=== PATIENT | female | born 1960 | race Caucasian/White ===

== ENCOUNTER 2016-08-09 18:40 | Observation (INO) | payer MEDICAID ==
[2016-08-09 19:14] LABS: BASOPHIL % 0.8 % (0.0-0.4); Eosinophil % 1.9 % (0.00-5.0); Granulocytes % 61.6 % (36.0-66.0); Lymphocytes % 28.1 % (24.0-44.0); Mean Cell Volume 80.7 fl (78-100); Mean Corpuscular Hemoglobin 27.4 pg (26-32); Mean Platelet Volume 10.6 fl (6-9.5); Monocytes % 7.6 % (0.0-12.0); Platelet Count 321 K/mm3 (150-450); Red Blood Count 5.19 M/mm3 (4.1-5.4); Red Cell Distribution Width 14.1 % (11.5-14.0); White Blood Count 10.2 K/mm3 (4.0-10.5)
--- NOTE | 2016-08-09 19:16 | ERPHSYRPT ---
- History of Present Illness Time Seen by Provider: 08/09/16 19:06 Source: patient, EMS Exam Limitations: no limitations Patient Subjective Stated Complaint: pt brought to ed per ems from home-reports pt has been vomiting x 2 days reports pt to be confused Triage Nursing Assessment: pt pale warm et dry-alert to person-able to follow simple commands- Physician History: The patient is a 56-year-old morbidly obese female brought in by ambulance from home. The family does not arrive with her. History is inadequate. EMS states she vomited occasionally for the past 2 days. She's also been confused. The patient states she has epigastric pain intermittently but right now has no pain. She is confused. She doesn't know where she is. She thinks she is at home. She does not know the year the month or the day. She thinks it's winter when it is the month of August. He she wonders where her dog is. She states that she has smoked marijuana today she does every day. Her past medical history is significant for congestive heart failure, diabetes, high cholesterol, hypertension, stroke, depression, and GERD. Timing/Duration: day(s) (2) Severity: moderate Modifying Factors: Improves With: nothing Associated Symptoms: nausea, vomiting, abdominal pain Allergies/Adverse Reactions: ketorolac tromethamine [From Toradol] Allergy (Mild, Verified 08/09/16 18:51) Rash Penicillins Allergy (Mild, Verified 08/09/16 18:51) Rash tramadol Allergy (Mild, Verified 08/09/16 18:51) Rash trazodone Allergy (Mild, Verified 08/09/16 18:51) Rash Home Medications: Escitalopram Oxalate 10 mg [Lexapro 10 MG] 10 mg PO TID 07/14/13 [History] Cyclobenzaprine HCl 10 mg [Cyclobenzaprine 10 MG] 1 tab PO BID 10/18/14 [ History] Insulin Lispro [Humalog] 18 units SQ TIDWMEALS 10/31/14 [History] Insulin Glargine,Hum.rec.anlog [Lantus Solostar] 18 unit SQ HS 04/23/15 [History ] Buspirone HCl 5 mg [Buspar 5 mg] 5 mg PO TID 05/22/15 [History] Carvedilol 3.125 mg [Coreg 3.125 MG] 3.125 mg PO BID 05/22/15 [History] Meclizine HCl 25 mg [Antivert 25 mg] 25 mg PO TID 05/22/15 [History] Naproxen Sodium [Naproxen Sodium ER] 500 mg PO TID 05/22/15 [History] Zolpidem Tartrate [Ambien] 12.5 mg PO TID 05/22/15 [History] Clonazepam 0.5 mg [Klonopin 0.5 MG] 0.5 mg PO UD 08/09/16 [History] Pregabalin [Lyrica 150Mg] 150 mg PO DAILY 08/09/16 [History] Ranitidine HCl [Zantac] 150 mg PO BID 08/09/16 [History] Hx Tetanus, Diphtheria Vaccination/Date Given: No Hx Influenza Vaccination/Date Given: No Hx Pneumococcal Vaccination/Date Given: No Immunizations Up to Date: Yes - Review of Systems Constitutional: No Fever, No Chills Eyes: No Symptoms Ears, Nose, & Throat: No Symptoms Respiratory: No Cough, No Dyspnea Cardiac: No Chest Pain, No Edema, No Syncope Abdominal/Gastrointestinal: Abdominal Pain, Nausea, Vomiting Genitourinary Symptoms: No Dysuria Musculoskeletal: No Back Pain, No Neck Pain Skin: No Rash Neurological: Other (confusion) Psychological: No Symptoms Endocrine: No Symptoms Hematologic/Lymphatic: No Symptoms Immunological/Allergic: No Symptoms All Other Systems: Reviewed and Negative - Past Medical History Pertinent Past Medical History: Yes Neurological History: Migraines, Other ENT History: No Pertinent History Cardiac History: No Pertinent History Respiratory History: No Pertinent History Endocrine Medical History: Diabetes Type II, Other Musculoskeletal History: Degenerative Disk Disease GI Medical History: No Pertinent History History: Other Psycho-Social History: Anxiety, Depression Female Reproductive Disorders: Abnormal Uterine Bleeding, Fibroids Other Medical History: "BACK PROBLEMS" - Past Surgical History Past Surgical History: Yes Neuro Surgical History: No Pertinent History Cardiac: No Pertinent History Respiratory: No Pertinent History Gastrointestinal: Cholecystectomy Genitourinary: No Pertinent History Musculoskeletal: No Pertinent History Female Surgical History: Section, Tubal Ligation - Social History Smoking Status: Never smoker Exposure to second hand smoke: No Drug Use: marijuana Patient Lives Alone: No - Female History Hx Now: No - Nursing Vital Signs Nursing Vital Signs: Initial Vital Signs Temperature 99.2 F Temperature Source Rectal Pulse Rate 100 Respiratory Rate 22 Blood Pressure [] 93/53 Pain Intensity 0 - Physical Exam General Appearance: mild distress Eye Exam: PERRL/EOMI, eyes nml inspection Ears, Nose, Throat Exam: normal ENT inspection, TMs normal, pharynx normal, moist mucous membranes Neck Exam: normal inspection, non-tender, supple, full range of motion Respiratory Exam: normal breath sounds, lungs clear, No respiratory distress Cardiovascular Exam: regular rate/rhythm, normal heart sounds, normal peripheral pulses Gastrointestinal/Abdomen Exam: tenderness Pelvic Exam: not done Rectal Exam: not done Back Exam: normal inspection, normal range of motion, No CVA tenderness, No vertebral tenderness Extremity Exam: normal inspection, normal range of motion, pelvis stable SpO2 Interpretation: normal SpO2: 98 Oxygen Delivery: Room Air - Course EKG Interpreted by Me: RATE, Sinus Rhythm, NORMAL AXIS, NORMAL INTERVALS, NORMAL QRS, Other (inverted T waves in V2, V3, V4, change in EKG compared to EKG 04/23/15.) - CT Exams Abdomen/Pelvis CT Interpretation: Tele-radiologist Report, Other (No new acute findings. Splenomegaly compared to 07/23/[address] Brooks.) Ordered Tests: Active Orders 24 hr Category Date Time Status Rubber Trimmer STAT Care 08/09/16 18:50 Active Cath for Specimen-Straight STAT Care 08/09/16 18:50 Active EKG-ER Only STAT Care 08/09/16 18:50 Active IV Insertion STAT Care 08/09/16 18:52 Active ABDOMEN AND PELVIS W/0 CONTRAS [CT] Stat Exams 08/09/16 19:23 Taken BNP [NT PRO BNP] Stat Lab 08/09/16 19:20 Completed CBC W DIFF Stat Lab 08/09/16 19:10 Completed CMP Stat Lab 08/09/16 19:10 Completed HCG QUALITATIVE,SERUM Stat Lab 08/09/16 19:00 Completed LIPASE Stat Lab 08/09/16 19:10 Completed Lactic Acid Urgent Lab 08/09/16 19:35 Completed TROPONIN Stat Lab 08/09/16 19:10 Completed UA Stat Lab 08/09/16 19:10 Completed Urine Triage Profile Stat Lab 08/09/16 19:00 Completed Medication Summary Discontinued Medications Generic Name Dose Route Start Last Admin Trade Name Caty PRN Reason Stop Dose Admin Sodium Chloride 1,000 mls @ 999 mls/hr 08/09/16 19:22 08/09/16 19:29 Sodium Chloride 0.9% 1000 Ml IV 08/09/16 20:22 999 mls/hr .Q1H1M STA Administration Sodium Chloride Confirm 08/09/16 19:28 Sodium Chloride 0.9% 1000 Ml Administered 08/09/16 19:29 Dose 1,000 mls @ ud .ROUTE .[facility] ONE Ondansetron HCl 4 mg 08/09/16 19:22 08/09/16 19:29 Zofran 4 Mg/2 Ml Vial IV 08/09/16 19:23 4 mg STAT ONE Administration Ondansetron HCl Confirm 08/09/16 19:28 Zofran 4 Mg/2 Ml Vial Administered 08/09/16 19:29 Dose 4 mg .ROUTE .[employer] ONE Lab/Rad Data: Laboratory Result Diagrams 08/09/16 19:10 08/09/16 19:10 Laboratory Results 08/09/16 08/09/16 08/09/16 Range/Units 19:35 19:20 19:10 WBC (4.0-10.5) K/mm3 RBC (4.1-5.4) M/mm3 Hgb (12.0-16.0) gm/dl Hct (35-47) % MCV (78-100) fl MCH (26-32) pg MCHC (32-36) g/dl RDW (11.5-14.0) % Plt Count (150-450) K/mm3 MPV (6-9.5) fl Gran % (36.0-66.0) % Lymphocytes % (24.0-44.0) % Monocytes % (0.0-12.0) % Eosinophils % (0.00-5.0) % Basophils % (0.0-0.4) % Basophils # (0-0.4) Sodium (136-145) mEq/L Potassium (3.5-5.1) mEq/L Chloride (98-107) mEq/L Carbon Dioxide (21-32) mEq/L Anion Gap (5-15) MEQ/L BUN (9-20) mg/dL Creatinine (0.55-1.30) mg/dl Estimated GFR ML/MIN Glucose (70-110) MG/DL Lactic Acid 2.8 H (0.4-2.0) Calcium (8.5-10.1) mg/dL Total Bilirubin (0.2-1.0) mg/dL AST (15-37) U/L ALT (12-78) U/L Alkaline Phosphatase (46-116) U/L Troponin I (0.000-0.056) ng/ml NT-Pro-B Natriuret Pep 560 H (0-125) pg/ml Serum Total Protein (6.4-8.2) gm/dL Albumin (3.4-5.0) g/dL Lipase (73-393) U/L Serum , Qual (Negative) Ur Collection Type CATH Urine Color YELLOW (YELLOW) Urine Appearance CLEAR (CLEAR) Urine pH 7.0 (5-6) Ur Specific [place] 1.015 (1.005-1.025) Urine Protein NEGATIVE (Negative) Urine Glucose (UA) 500 (NEGATIVE) mg/dL Urine Ketones TRACE (NEGATIVE) Urine Nitrite NEGATIVE (NEGATIVE) Urine Bilirubin NEGATIVE (NEGATIVE) Urine Urobilinogen 0.2 (0-1) mg/dL Urine WBC (Auto) NEGATIVE (NEGATIVE) Urine RBC (Auto) NEGATIVE (0-5) Brodie/ul Urine Opiates Level (NEGATIVE) Ur Methadone (NEGATIVE) Urine Barbiturates (NEGATIVE) Ur Phencyclidine (PCP) (NEGATIVE) Urine Amphetamine (NEGATIVE) U Benzodiazepine Level (NEGATIVE) Urine Cocaine (NEGATIVE) Urine Marijuana (THC) (NEGATIVE) Specimen Received 08/09/16 1900 08/09/16 08/09/16 08/09/16 Range/Units 19:10 19:10 19:00 WBC 10.2 (4.0-10.5) K/mm3 RBC 5.19 (4.1-5.4) M/mm3 Hgb 14.2 (12.0-16.0) gm/dl Hct 41.9 (35-47) % MCV 80.7 (78-100) fl MCH 27.4 (26-32) pg MCHC 33.9 (32-36) g/dl RDW 14.1 H (11.5-14.0) % Plt Count 321 (150-450) K/mm3 MPV 10.6 H (6-9.5) fl Gran % 61.6 (36.0-66.0) % Lymphocytes % 28.1 (24.0-44.0) % Monocytes % 7.6 (0.0-12.0) % Eosinophils % 1.9 (0.00-5.0) % Basophils % 0.8 (0.0-0.4) % Basophils # 0.08 (0-0.4) Sodium 138 (136-145) mEq/L Potassium 4.1 (3.5-5.1) mEq/L Chloride 100 (98-107) mEq/L Carbon Dioxide 23.6 (21-32) mEq/L Anion Gap 18.0 H (5-15) MEQ/L BUN 10 (9-20) mg/dL Creatinine 0.82 (0.55-1.30) mg/dl Estimated GFR > 60 ML/MIN Glucose 411 H (70-110) MG/DL Lactic Acid (0.4-2.0) Calcium 9.4 (8.5-10.1) mg/dL Total Bilirubin 0.3 (0.2-1.0) mg/dL AST 16 (15-37) U/L ALT 25 (12-78) U/L Alkaline Phosphatase 120 H (46-116) U/L Troponin I < 0.017 (0.000-0.056) ng/ml NT-Pro-B Natriuret Pep (0-125) pg/ml Serum Total Protein 7.2 (6.4-8.2) gm/dL Albumin 3.3 L (3.4-5.0) g/dL Lipase 101 (73-393) U/L Serum , Qual NEGATIVE (Negative) Ur Collection Type Urine Color (YELLOW) Urine Appearance (CLEAR) Urine pH (5-6) Ur Specific [place] (1.005-1.025) Urine Protein (Negative) Urine Glucose (UA) (NEGATIVE) mg/dL Urine Ketones (NEGATIVE) Urine Nitrite (NEGATIVE) Urine Bilirubin (NEGATIVE) Urine Urobilinogen (0-1) mg/dL Urine WBC (Auto) (NEGATIVE) Urine RBC (Auto) (0-5) Brodie/ul Urine Opiates Level (NEGATIVE) Ur Methadone (NEGATIVE) Urine Barbiturates (NEGATIVE) Ur Phencyclidine (PCP) (NEGATIVE) Urine Amphetamine (NEGATIVE) U Benzodiazepine Level (NEGATIVE) Urine Cocaine (NEGATIVE) Urine Marijuana (THC) (NEGATIVE) Specimen Received 08/09/16 Range/Units 19:00 WBC (4.0-10.5) K/mm3 RBC (4.1-5.4) M/mm3 Hgb (12.0-16.0) gm/dl Hct (35-47) % MCV (78-100) fl MCH (26-32) pg MCHC (32-36) g/dl RDW (11.5-14.0) % Plt Count (150-450) K/mm3 MPV (6-9.5) fl Gran % (36.0-66.0) % Lymphocytes % (24.0-44.0) % Monocytes % (0.0-12.0) % Eosinophils % (0.00-5.0) % Basophils % (0.0-0.4) % Basophils # (0-0.4) Sodium (136-145) mEq/L Potassium (3.5-5.1) mEq/L Chloride (98-107) mEq/L Carbon Dioxide (21-32) mEq/L Anion Gap (5-15) MEQ/L BUN (9-20) mg/dL Creatinine (0.55-1.30) mg/dl Estimated GFR ML/MIN Glucose (70-110) MG/DL Lactic Acid (0.4-2.0) Calcium (8.5-10.1) mg/dL Total Bilirubin (0.2-1.0) mg/dL AST (15-37) U/L ALT (12-78) U/L Alkaline Phosphatase (46-116) U/L Troponin I (0.000-0.056) ng/ml NT-Pro-B Natriuret Pep (0-125) pg/ml Serum Total Protein (6.4-8.2) gm/dL Albumin (3.4-5.0) g/dL Lipase (73-393) U/L Serum , Qual (Negative) Ur Collection Type Urine Color (YELLOW) Urine Appearance (CLEAR) Urine pH (5-6) Ur Specific [place] (1.005-1.025) Urine Protein (Negative) Urine Glucose (UA) (NEGATIVE) mg/dL Urine Ketones (NEGATIVE) Urine Nitrite (NEGATIVE) Urine Bilirubin (NEGATIVE) Urine Urobilinogen (0-1) mg/dL Urine WBC (Auto) (NEGATIVE) Urine RBC (Auto) (0-5) Brodie/ul Urine Opiates Level NEG. (NEGATIVE) Ur Methadone NEG. (NEGATIVE) Urine Barbiturates NEG. (NEGATIVE) Ur Phencyclidine (PCP) NEG. (NEGATIVE) Urine Amphetamine NEG. (NEGATIVE) U Benzodiazepine Level NEG. (NEGATIVE) Urine Cocaine NEG. (NEGATIVE) Urine Marijuana (THC) POS. (NEGATIVE) Specimen Received - Progress Progress: improved Progress Note: 08/09/16 21:17 After NS 1000 ml and zofran 4 mg IV, pt feels better and now is oriented. Discussed with : Sally Will see patient in: hospital (observation) Counseled pt/family regarding: lab results, diagnosis, rad results - Departure Time of Disposition: 21:18 Departure Disposition: Observation Clinical Impression: Confusion Condition: Stable Critical Care Time: No
[2016-08-09 19:17] LABS: Collection Type CATH
[2016-08-09 19:18] LABS: COMPLETE URINE MICROSCOPIC? NO
[2016-08-09] MEDS ORDERED: Sodium Chloride 0.9% 1000 ML 1,000 ML IV STA (19:22)
[2016-08-09] MEDS ORDERED: Zofran 4 MG/2 ML VIAL IV ONE (19:22)
[2016-08-09] MEDS ORDERED: Zofran 4 MG/2 ML VIAL ONE (19:28)
[2016-08-09] MEDS ORDERED: Sodium Chloride 0.9% 1000 ML 1,000 ML ONE (19:28)
[2016-08-09 19:43] LABS: ALBUMIN 3.3 g/dL (3.4-5.0); ALKALINE PHOSPHATASE 120 U/L (46-116); BILIRUBIN,TOTAL 0.3 mg/dL (0.2-1.0); BLOOD UREA NITROGEN 10 mg/dL (9-20); CHLORIDE 100 mEq/L (98-107); Carbon Dioxide 23.6 mEq/L (21-32); Glucose 411 MG/DL (70-110); LIPASE 101 U/L (73-393); Potassium 4.1 mEq/L (3.5-5.1); SGOT/AST 16 U/L (15-37); SGPT/ALT 25 U/L (12-78); SODIUM 138 mEq/L (136-145); TROPONIN < 0.017 ng/ml (0.000-0.056); Total Protein 7.2 gm/dL (6.4-8.2)
[2016-08-09] MEDS ORDERED: Klonopin 0.5 MG PO PRN (23:40)
[2016-08-09] MEDS ORDERED: Cyclobenzaprine 10 MG PO SCH (23:45)
[2016-08-09] MEDS ORDERED: Coreg 3.125 MG PO SCH (23:45)
[2016-08-09] MEDS ORDERED: Ambien 10 MG PO SCH (23:45)
[2016-08-09] MEDS ORDERED: Lexapro 10 MG PO SCH (23:45)
[2016-08-09] MEDS ORDERED: ANTIVERT 25 MG PO PRN (23:47)
[2016-08-09] MEDS ORDERED: Naprosyn 500 MG PO PRN (23:48)
[2016-08-10] MEDS ORDERED: Ambien 10 MG ONE (00:43)
[2016-08-10] MEDS ORDERED: Lexapro 10 MG ONE (00:45)
[2016-08-10] MEDS: BUSPAR 5 MG PO SCH ×4 (00:47→21:39)
[2016-08-10] MEDS: Pepcid 20 MG PO SCH ×3 (00:48→21:39)
[2016-08-10] MEDS: Lantus Insulin SQ SCH ×2 (00:48→21:39)
[2016-08-10] MEDS: NovoLOG Insulin SQ SCH ×9 (00:48→22:03)
[2016-08-10] MEDS: LYRICA 150MG PO SCH ×3 (00:49→21:38)
[2016-08-10 05:27] LABS: BASOPHIL % 0.7 % (0.0-0.4); Eosinophil % 2.5 % (0.00-5.0); Lymphocytes % 27.1 % (24.0-44.0); Mean Cell Volume 82.2 fl (78-100); Mean Corpuscular Hemoglobin 27.6 pg (26-32); Mean Platelet Volume 10.5 fl (6-9.5); Monocytes % 10.7 % (0.0-12.0); Platelet Count 299 K/mm3 (150-450); Red Blood Count 4.78 M/mm3 (4.1-5.4); Red Cell Distribution Width 14.2 % (11.5-14.0); White Blood Count 10.8 K/mm3 (4.0-10.5)
[2016-08-10 06:13] LABS: ALBUMIN 2.9 g/dL (3.4-5.0); ALKALINE PHOSPHATASE 94 U/L (46-116); ANION GAP 14.7 MEQ/L (5-15); BILIRUBIN,TOTAL 0.3 mg/dL (0.2-1.0); BLOOD UREA NITROGEN 11 mg/dL (9-20); CHLORIDE 104 mEq/L (98-107); Carbon Dioxide 25.1 mEq/L (21-32); Glucose 257 MG/DL (70-110); Potassium 3.8 mEq/L (3.5-5.1); SGOT/AST 13 U/L (15-37); SGPT/ALT 13 U/L (12-78); SODIUM 140 mEq/L (136-145); Total Protein 6.8 gm/dL (6.4-8.2)
[2016-08-10] MEDS ORDERED: Ambien 10 MG PO PRN (08:13)
[2016-08-10] MEDS ORDERED: ANTIVERT 25 MG PO PRN (08:14)
[2016-08-10] MEDS ORDERED: Naprosyn 500 MG PO PRN (08:16)
[2016-08-10] MEDS ORDERED: Cyclobenzaprine 10 MG PO PRN (08:16)
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
--- NOTE | 2016-08-10 08:53 | XRAY ---
Indication: Acute abdominal pain. Multiple contiguous axial images obtained through the abdomen and pelvis without contrast as ordered. Comparison: July 23, 2016. Lung bases are clear. Heart is not enlarged. Stable small hiatal hernia. Noncontrasted stomach and bowel loops appear nonobstructed. Appendix again not seen. No free fluid/air. Stable fatty liver, 12.3 cm splenomegaly, calcified splenic granulomas, cholecystectomy, and tiny calcified uterine fibroids. Remaining pancreas, adrenal glands, kidneys, ureters, and urinary bladder appear unremarkable for noncontrast exam. There remains minimal aortic calcifications without AAA. Osseous structures intact again with minimal degenerative changes throughout the spine. Impression: 1. Stable hiatal hernia, fatty liver, calcified uterine fibroids, and splenomegaly. 2. No new/acute intra-abdominal/pelvic abnormalities. CT DI 23.68
[2016-08-10] MEDS ORDERED: PREVNAR 13 SYRINGE IM ONE (10:00)
[2016-08-10] MEDS: ENOXAPARIN SODIUM SQ SCH (10:15)
[2016-08-10] MEDS: Lexapro 10 MG PO SCH (10:16)
[2016-08-10] MEDS: Coreg 3.125 MG PO SCH ×2 (10:16→16:12)
--- NOTE | 2016-08-10 11:23 | XRAY ---
Indication: Multiple syncopal episodes for past 3 days. Sagittal, coronal, and axial MRI brain was performed using pre-and post T1, T2, FLAIR, diffusion, and ADC sequences. 20 cc Magnevist contrast used. Comparison: None Age-appropriate global atrophy. A few tiny T2 signal intensities in the parahilar white matter favoring degenerative micro-ischemia. Right basal ganglia remote lacunar infarcts. No acute intracranial hemorrhage, abnormal extra-axial fluid collection, or mass effect. Diffusion images are negative for restricted signal. Following gadolinium, there is no abnormal enhancing intra-or extra-axial mass. Fourth ventricle is midline. No hydrocephalus. 7/8 cranial nerve complex bilaterally symmetric. Normal-appearing craniocervical junction and sella turcica. Paranasal sinuses are clear. Impression: 1. Normal aging brain including atrophy and degenerative micro-ischemia. 2. Right basal ganglia remote lacunar infarcts. 3. No acute intracranial abnormalities or evidence for evolving large vessel territorial stroke. 4. Negative contrast exam.
[2016-08-10] MEDS: PLAVIX 75 MG Tablet PO SCH (14:23)
--- NOTE | 2016-08-10 16:31 | XRAY ---
Indication: Syncope. Two-dimensional sonogram and color Doppler imaging of the carotid arteries of the neck was performed. Comparison: April 25, 2015. Examination of the right carotid circulation demonstrates wide patency. PSV of the CCA is 64 cm/s. PSV of the ICA is 69 cm/s. ICA/CCA ratio 1.1. Normal antegrade vertebral artery flow. Examination of the left carotid circulation also demonstrates wide patency. PSV of the CCA is 82 cm/s. PSV of the ICA is 93 cm/s. ICA/CCA ratio is 1.1. Normal antegrade vertebral artery flow. Impression: Stable bilaterally patent carotid arteries. Normal bilateral antegrade vertebral artery flow.
[2016-08-11] MEDS: NovoLOG Insulin SQ SCH ×4 (07:34→12:01)
[2016-08-11 07:51] VITALS: O2SAT 95
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
[2016-08-11] MEDS: Coreg 3.125 MG PO SCH (08:28)
[2016-08-11] MEDS: PLAVIX 75 MG Tablet PO SCH (08:55)
[2016-08-11] MEDS: Pepcid 20 MG PO SCH (08:55)
[2016-08-11] MEDS: LYRICA 150MG PO SCH (08:55)
[2016-08-11] MEDS: BUSPAR 5 MG PO SCH (08:55)
[2016-08-11] MEDS: Lexapro 10 MG PO SCH (08:55)
[2016-08-11] MEDS: ENOXAPARIN SODIUM SQ SCH (08:55)
[2016-08-11 12:21] VITALS: BP 125/73; PULSE 84
--- NOTE | 2016-08-12 08:25 | ECHO ---
Transthoracic echocardiographic examination and color Doppler was done on 08/10/2016. INDICATION: Syncope, hypertension, hyperlipidemia. IMPRESSION: 1) NO REGIONAL WALL MOTION ABNORMALITY. ESTIMATED GLOBAL LEFT VENTRICULAR EJECTION FRACTION OF AROUND 60%. 2) LEFT VENTRICULAR HYPERTROPHY. 3) PROBABLE LEFT VENTRICULAR DIASTOLIC DYSFUNCTION. 4) TRACE TRICUSPID REGURGITATION. RIGHT VENTRICULAR SYSTOLIC PRESSURE OF 22 MM OF MERCURY. The left ventricle is only partially visualized but demonstrated adequate contractility. The estimated global left ventricular ejection fraction around 60%. There is mild left ventricular hypertrophy. The mitral valve is partially seen and this opens adequately. There is no significant mitral regurgitation seen. Left atrium is normal. Tissue Doppler study of the lateral mitral annulus suggests left ventricular diastolic dysfunction. The aortic valve opens adequately. Right side chambers are normal. There is trace tricuspid regurgitation. Right ventricular systolic pressure of 22 mm of Mercury.
== END 2016-08-11 12:30 | disposition home or self-care (01) ==
LOC: ED 18:40 → MED SURG 21:43
PROVIDERS: ADMIT Family Medicine; ATTEND Family Medicine
DX: R40.4 Transient alteration of awareness (principal); R07.9 Chest pain, unspecified; E11.42 Type 2 diabetes mellitus with diabetic polyneuropathy; Z79.4 Long term (current) use of insulin; R55 Syncope and collapse; F33.1 Major depressive disorder, recurrent, moderate; F41.9 Anxiety disorder, unspecified; Z79.899 Other long term (current) drug therapy
CPT/HCPCS: 36415; 70553; 74176; 80053; 80307; 81002; 82962; 83605; 83690; 83880; 84484; 84703; 85025; 90670; 93005; 93041; 93268; 93306; 93880; 96360; 96374; 99285; G0009; G0378; J1650; J2405; P9612; A9270-GY

== ENCOUNTER 2016-09-11 10:23 | Inpatient (IN) | payer OTHER ==
[2016-09-11 11:07] LABS: BASOPHIL % 0.9 % (0.0-0.4); Eosinophil % 2.4 % (0.00-5.0); Granulocytes % 62.5 % (36.0-66.0); Lymphocytes % 26.2 % (24.0-44.0); Mean Cell Volume 81.7 fl (78-100); Mean Corpuscular Hemoglobin 27.3 pg (26-32); Mean Platelet Volume 10.4 fl (6-9.5); Platelet Count 347 K/mm3 (150-450); Red Blood Count 4.91 M/mm3 (4.1-5.4); Red Cell Distribution Width 14.1 % (11.5-14.0)
[2016-09-11 11:33] LABS: ALBUMIN 3.2 g/dL (3.4-5.0); ALKALINE PHOSPHATASE 121 U/L (46-116); ANION GAP 14.4 MEQ/L (5-15); BLOOD UREA NITROGEN 10 mg/dL (9-20); CHLORIDE 98 mEq/L (98-107); Carbon Dioxide 23.1 mEq/L (21-32); Glucose 488 MG/DL (70-110); Potassium 4.7 mEq/L (3.5-5.1); SGOT/AST 17 U/L (15-37); SGPT/ALT 27 U/L (12-78); SODIUM 131 mEq/L (136-145); Total Protein 8.2 gm/dL (6.4-8.2)
--- NOTE | 2016-09-11 12:00 | XRAY ---
Indication: Syncope and dizziness. Comparison: April 23, 2015. PA/lateral chest again clear with incidental scattered calcified granulomas. Heart is not enlarged. Vascularity normal. Bony thorax intact again with mild degenerative changes. Impression: Stable nonacute chest with chronic features.
[2016-09-11] MEDS ORDERED: VANCOCIN 1 GM VIAL*** 2 GM in Sodium Chloride 0.9% 500 ML 500 ML IV ONE (13:00)
[2016-09-11] MEDS: Sodium Chloride 0.9% 1000 ML 1,000 ML IV SCH (13:17)
[2016-09-11] MEDS ORDERED: ZOLPIDEM TARTRATE 12.5 MG PO PRN (16:12)
[2016-09-11] MEDS ORDERED: ANTIVERT 25 MG PO PRN (16:12)
[2016-09-11] MEDS ORDERED: Klonopin 0.5 MG PO PRN (16:12)
[2016-09-11] MEDS ORDERED: Cyclobenzaprine 10 MG PO PRN (16:12)
[2016-09-11 16:36] LABS: COMPLETE URINE MICROSCOPIC? NO; Collection Type CLEAN CATCH; Ph 5.5 (5-6)
[2016-09-11] MEDS: BUSPAR 5 MG PO SCH ×2 (16:54→21:07)
[2016-09-11] MEDS: Coreg 3.125 MG PO SCH (16:54)
[2016-09-11] MEDS: hydroDIURIL 25 MG PO SCH (16:54)
[2016-09-11] MEDS: PLAVIX 75 MG Tablet PO SCH (16:54)
[2016-09-11] MEDS: LYRICA 150MG PO SCH ×2 (16:54→21:08)
[2016-09-11] MEDS: NovoLOG Insulin SQ PRN (16:55)
[2016-09-11] MEDS: NovoLOG Insulin SQ SCH (16:55)
[2016-09-11] MEDS: OXYCODONE-ACETAMINOPHEN 10-325 PO PRN ×2 (17:00→21:00)
[2016-09-11] MEDS ORDERED: INSULIN LISPRO 18 UNIT SQ SCH (17:00)
[2016-09-11] MEDS: ZOCOR 20MG PO SCH (21:07)
[2016-09-11] MEDS: Ambien 10 MG PO PRN (21:08)
[2016-09-11] MEDS: Pepcid 20 MG PO SCH (21:08)
[2016-09-11] MEDS: VANCOCIN 1 GM VIAL*** 1.25 GM in Sodium Chloride 0.9% 250 ML 250 ML IV SCH (21:12)
[2016-09-11] MEDS ORDERED: Lantus Insulin SQ SCH (22:00)
[2016-09-11] MEDS ORDERED: INSULIN GLARGINE HUM REC ANLOG 18 UNIT SQ SCH (22:00)
[2016-09-11] MEDS ORDERED: NON-FORMULARY ITEM (Ranitidine Hcl [Zantac] 150 MG) PO SCH (22:00)
[2016-09-12] MEDS: Sodium Chloride 0.9% 1000 ML 1,000 ML IV SCH ×2 (04:15→15:55)
[2016-09-12] MEDS: OXYCODONE-ACETAMINOPHEN 10-325 PO PRN ×3 (04:21→19:57)
[2016-09-12] MEDS: NovoLOG Insulin SQ SCH ×3 (08:14→17:12)
[2016-09-12] MEDS: Coreg 3.125 MG PO SCH ×2 (08:14→17:12)
[2016-09-12] MEDS: NovoLOG Insulin SQ PRN ×4 (08:15→21:39)
[2016-09-12] MEDS ORDERED: Lantus Insulin SQ SCH (08:21)
--- NOTE | 2016-09-12 08:23 | PCM.HP ---
History of Present Illness - Chief Complaint Chief Complaint: Cellulitis/abscess RLE-failed OP therapy Date: 09/12/16 History of Present Illness: is a 56 year old female. right lateral leg with nonhealing draining wound with tenderness after po clinda with no improvement and her uncontrolled diabetes she was sent for direct admissoin for iv antibiotics and titration of sugar control otherwise she is feeling well. - Review of Systems Constitutional: Fatigue, No Fever, No Chills Eyes: No Symptoms Ears, Nose, & Throat: No Symptoms Respiratory: No Cough, No Short Of Breath Cardiac: No Chest Pain, No Edema, No Syncope Abdominal/Gastrointestinal: No Abdominal Pain, No Nausea, No Vomiting, No Diarrhea Genitourinary Symptoms: No Dysuria Musculoskeletal: Back Pain, No Neck Pain Skin: Cellulitis, Skin Lesions, No Rash Neurological: No Dizziness, No Focal Weakness, No Sensory Changes Psychological: No Symptoms Endocrine: No Symptoms Hematologic/Lymphatic: No Symptoms Immunological/Allergic: No Symptoms Medications & Allergies Home Medications: Home Medication List Cyclobenzaprine HCl 10 mg [Cyclobenzaprine 10 MG] 10 ng PO HS PRN PRN [History Confirmed 09/11/16] Insulin Lispro [Humalog] 18 units SQ TIDWMEALS 10/31/14 [History Confirmed 09/11] Insulin Glargine,Hum.rec.anlog [Lantus Solostar] 18 unit SQ HS 04/23/15 [ History Confirmed 09/11/16] Buspirone HCl 5 mg [Buspar 5 mg] 10 mg PO BID 05/22/15 [History Confirmed 09/11/16] Carvedilol 3.125 mg [Coreg 3.125 MG] 3.125 mg PO BIDWMEALS 05/22/15 [ History Confirmed 09/11/16] Meclizine HCl 25 mg [Antivert 25 mg] 12.5 mg PO TID PRN PRN 05/22/15 [ History Confirmed 09/11/16] Clonazepam 0.5 mg [Klonopin 0.5 MG] 0.5 mg PO HS PRN PRN 08/09/16 [ History Confirmed 09/11/16] Pregabalin [Lyrica 150Mg] 150 mg PO TID 08/09/16 [History Confirmed 09/11/16] Ranitidine HCl [Zantac] 150 mg PO BID 08/09/16 [History Confirmed 09/11/16] Clopidogrel Bisulfate 75 mg [PLAVIX 75 MG Tablet] 75 mg PO DAILY #30 tablet 08/11/16 [Rx Confirmed 09/11/16] Escitalopram Oxalate 10 mg [Lexapro 10 MG] 20 mg PO DAILY #30 tablet [Rx Confirmed 09/11/16] Clindamycin HCl 300 mg PO QID 09/11/16 [History Confirmed 09/11/16] Hydrochlorothiazide 12.5 mg PO DAILY 09/11/16 [History Confirmed 09/11/16] Simvastatin 40 mg [Zocor 40 mg] 40 mg PO DAILY 09/11/16 [History Confirmed 09/11] Zolpidem Tartrate [Ambien Cr] 12.5 mg PO HS PRN PRN 09/11/16 [History Confirmed 09/11/16] Allergies/Adverse Reactions: Allergies Allergy/AdvReac Type Severity Reaction Status Date / Time ketorolac tromethamine Allergy Mild Rash Verified 09/11/16 11:16 [From Toradol] Penicillins Allergy Mild Rash Verified 09/11/16 11:16 tramadol Allergy Mild Rash Verified 09/11/16 11:16 trazodone Allergy Mild Rash Verified 09/11/16 11:16 duloxetine [From Cymbalta] AdvReac Intermediate excessive Verified 09/11/16 11: 16 confusion - Past Medical History Past Medical History: Yes Neurological History: No Pertinent History ENT History: No Pertinent History Cardiac History: Hypertension Respiratory History: No Pertinent History Endocrine Medical History: Diabetes Type II Musculoskelatal History: Degenerative Disk Disease GI Medical History: GERD History: No Pertinent History Pyscho-Social History: Anxiety, Depression Reproductive Disorders: Abnormal Uterine Bleeding, Fibroids Comment: "BACK PROBLEMS" - Female History Are you now?: No - Past Surgical History Past Surgical History: Yes Neuro Surgical History: No Pertinent History Cardiac History: No Pertinent History Respiratory Surgery: No Pertinent History GI Surgical History: Cholecystectomy Genitourinary Surgical Hx: No Pertinent History Musculskeletal Surgical Hx: No Pertinent History Female Surgical History: Section, Tubal Ligation - Social History Smoking Status: Never smoker Exposure to second hand smoke: Yes Alcohol: None Drug Use: none - Physical Exam Vital Signs: Vital Signs - 24 hr Temp Pulse Resp BP Pulse Ox 09/12/16 07:10 97.4 F 78 20 114/59 95 09/12/16 04:00 97.4 F 75 18 115/63 96 09/12/16 00:00 98.1 F 73 20 130/67 95 09/11/16 20:00 98.5 F 81 20 128/75 96 09/11/16 16:00 98.9 F 87 18 113/57 95 09/11/16 10:46 98.4 F 91 H 18 135/64 94 L General Appearance: no apparent distress, alert Neurologic Exam: alert, oriented x 3, cooperative, normal mood/affect, nml cerebellar function, nml station & gait, sensation nml, No motor deficits Eye Exam: PERRL/EOMI, eyes nml inspection Ears, Nose, Throat Exam: normal ENT inspection, TMs normal, pharynx normal, moist mucous membranes Neck Exam: normal inspection, non-tender, supple, full range of motion Respiratory Exam: normal breath sounds, lungs clear, No respiratory distress Cardiovascular Exam: regular rate/rhythm, normal heart sounds, normal peripheral pulses Gastrointestinal/Abdomen Exam: soft, normal bowel sounds, No tenderness, No mass Back Exam: normal inspection, normal range of motion, No CVA tenderness, No vertebral tenderness Extremity Exam: normal inspection, normal range of motion, pelvis stable Skin Exam: normal color, warm, dry, other (right lateral leg with tender raised warm draining lesion) Lymphatic Exam: No adenopathy Results - Labs Lab/Micro Results: Accuchecks Date 09/11/16 Time 16:30 Accucheck Value: 146 Accucheck Value: 365 Lab Results-Last 24 Hours 09/11/16 09/11/16 09/11/16 Range/Units 10:45 10:45 11:00 WBC 8.0 (4.0-10.5) K/mm3 RBC 4.91 (4.1-5.4) M/mm3 Hgb 13.4 (12.0-16.0) gm/dl Hct 40.1 (35-47) % MCV 81.7 (78-100) fl MCH 27.3 (26-32) pg MCHC 33.4 (32-36) g/dl RDW 14.1 H (11.5-14.0) % Plt Count 347 (150-450) K/mm3 MPV 10.4 H (6-9.5) fl Gran % 62.5 (36.0-66.0) % Lymphocytes % 26.2 (24.0-44.0) % Monocytes % 8.0 (0.0-12.0) % Eosinophils % 2.4 (0.00-5.0) % Basophils % 0.9 (0.0-0.4) % Basophils # 0.07 (0-0.4) Sodium (136-145) mEq/L Potassium (3.5-5.1) mEq/L Chloride (98-107) mEq/L Carbon Dioxide (21-32) mEq/L Anion Gap (5-15) MEQ/L BUN (9-20) mg/dL Creatinine (0.55-1.30) mg/dl Estimated GFR ML/MIN Glucose (70-110) MG/DL Hemoglobin A1c 11.7 H (4.5-6.2) Lactic Acid 1.7 (0.4-2.0) Calcium (8.5-10.1) mg/dL Total Bilirubin (0.2-1.0) mg/dL AST (15-37) U/L ALT (12-78) U/L Alkaline Phosphatase (46-116) U/L Serum Total Protein (6.4-8.2) gm/dL Albumin (3.4-5.0) g/dL Ur Collection Type Urine Color (YELLOW) Urine Appearance (CLEAR) Urine pH (5-6) Ur Specific Hagerman (1.005-1.025) Urine Protein (Negative) Urine Glucose (UA) (NEGATIVE) mg/dL Urine Ketones (NEGATIVE) Urine Nitrite (NEGATIVE) Urine Bilirubin (NEGATIVE) Urine Urobilinogen (0-1) mg/dL Urine WBC (Auto) (NEGATIVE) Urine RBC (Auto) (0-5) Brodie/ul Specimen Received 09/11/16 09/11/16 09/12/16 Range/Units 11:00 16:19 05:57 WBC (4.0-10.5) K/mm3 RBC (4.1-5.4) M/mm3 Hgb (12.0-16.0) gm/dl Hct (35-47) % MCV (78-100) fl MCH (26-32) pg MCHC (32-36) g/dl RDW (11.5-14.0) % Plt Count (150-450) K/mm3 MPV (6-9.5) fl Gran % (36.0-66.0) % Lymphocytes % (24.0-44.0) % Monocytes % (0.0-12.0) % Eosinophils % (0.00-5.0) % Basophils % (0.0-0.4) % Basophils # (0-0.4) Sodium 131 L (136-145) mEq/L Potassium 4.7 (3.5-5.1) mEq/L Chloride 98 (98-107) mEq/L Carbon Dioxide 23.1 (21-32) mEq/L Anion Gap 14.4 (5-15) MEQ/L BUN 10 (9-20) mg/dL Creatinine 0.87 0.86 (0.55-1.30) mg/dl Estimated GFR > 60 > 60 ML/MIN Glucose 488 H (70-110) MG/DL Hemoglobin A1c (4.5-6.2) Lactic Acid (0.4-2.0) Calcium 9.5 (8.5-10.1) mg/dL Total Bilirubin 0.30 (0.2-1.0) mg/dL AST 17 (15-37) U/L ALT 27 (12-78) U/L Alkaline Phosphatase 121 H (46-116) U/L Serum Total Protein 8.2 (6.4-8.2) gm/dL Albumin 3.2 L (3.4-5.0) g/dL Ur Collection Type CLEAN CATCH Urine Color YELLOW (YELLOW) Urine Appearance SLIGHTLY CLOUDY (CLEAR) Urine pH 5.5 (5-6) Ur Specific Hagerman 1.025 (1.005-1.025) Urine Protein NEGATIVE (Negative) Urine Glucose (UA) 500 (NEGATIVE) mg/dL Urine Ketones TRACE (NEGATIVE) Urine Nitrite NEGATIVE (NEGATIVE) Urine Bilirubin NEGATIVE (NEGATIVE) Urine Urobilinogen 0.2 (0-1) mg/dL Urine WBC (Auto) NEGATIVE (NEGATIVE) Urine RBC (Auto) NEGATIVE (0-5) Brodie/ul Specimen Received 09/11/16 1619 Accuchecks Date 09/11/16 Time 16:30 Accucheck Value: 146 Accucheck Value: 365 - Radiology Impressions Radiology Exams & Impressions: Radiology Procedures Category Date Time Status CHEST 2 VIEWS (PA AND LAT) Routine Exams 09/11/16 11:00 Completed Assessment/Plan (1) Cellulitis and abscess of lower extremity Current Visit: Yes Status: Acute Assessment & Plan: failed outpatient clindamycin was direct admit by Dr. Zavala for iv vancomycin will continue now with pharmacy to dose Code(s): L03.119 - CELLULITIS OF UNSPECIFIED PART OF LIMB; L02.419 - CUTANEOUS ABSCESS OF LIMB, UNSPECIFIED (2) Failure of outpatient treatment Current Visit: Yes Status: Acute Code(s): Z78.9 - OTHER SPECIFIED HEALTH STATUS (3) Diabetes mellitus Current Visit: Yes Status: Acute Qualifiers: Assessment & Plan: uncontrolled work on increasing the lantus up to 25 Units titrate up as tolerated Code(s): E11.9 - TYPE 2 DIABETES MELLITUS WITHOUT COMPLICATIONS (4) Diabetic peripheral neuropathy Current Visit: Yes Status: Chronic Code(s): E11.42 - TYPE 2 DIABETES MELLITUS WITH DIABETIC POLYNEUROPATHY
[2016-09-12] MEDS: VANCOCIN 1 GM VIAL*** 1.25 GM in Sodium Chloride 0.9% 250 ML 250 ML IV SCH ×2 (09:15→21:45)
[2016-09-12] MEDS: BUSPAR 5 MG PO SCH ×2 (09:16→21:40)
[2016-09-12] MEDS: PLAVIX 75 MG Tablet PO SCH (09:16)
[2016-09-12] MEDS: Pepcid 20 MG PO SCH ×2 (09:16→21:40)
[2016-09-12] MEDS: hydroDIURIL 25 MG PO SCH (09:16)
[2016-09-12] MEDS: ENOXAPARIN SODIUM SQ SCH (09:16)
[2016-09-12] MEDS: LYRICA 150MG PO SCH ×3 (09:16→21:40)
[2016-09-12] MEDS: Lexapro 10 MG PO SCH (09:16)
[2016-09-12] MEDS ORDERED: NON-FORMULARY ITEM (Simvastatin 40 Mg [Zocor 40 Mg] 40 MG) PO SCH (10:00)
[2016-09-12] MEDS ORDERED: NON-FORMULARY ITEM (Hydrochlorothiazide [Hydrochlorothiazide] 12.5 MG) PO SCH (10:00)
[2016-09-12] MEDS: ZOCOR 20MG PO SCH (21:40)
[2016-09-12] MEDS: Ambien 10 MG PO PRN (21:52)
[2016-09-13] MEDS: Sodium Chloride 0.9% 1000 ML 1,000 ML IV SCH ×3 (04:37→16:12)
[2016-09-13] MEDS: OXYCODONE-ACETAMINOPHEN 10-325 PO PRN ×2 (06:57→23:02)
[2016-09-13] MEDS: VANCOCIN 1 GM VIAL*** 1.25 GM in Sodium Chloride 0.9% 250 ML 250 ML IV SCH ×2 (07:55→23:03)
[2016-09-13] MEDS: hydroDIURIL 25 MG PO SCH (07:56)
[2016-09-13] MEDS: Pepcid 20 MG PO SCH ×2 (07:56→22:54)
[2016-09-13] MEDS: PLAVIX 75 MG Tablet PO SCH (07:56)
[2016-09-13] MEDS: Lexapro 10 MG PO SCH (07:56)
[2016-09-13] MEDS: LYRICA 150MG PO SCH ×3 (07:56→22:54)
[2016-09-13] MEDS: Coreg 3.125 MG PO SCH ×2 (07:56→16:07)
[2016-09-13] MEDS: BUSPAR 5 MG PO SCH ×2 (07:56→23:02)
[2016-09-13] MEDS: ENOXAPARIN SODIUM SQ SCH (07:56)
[2016-09-13] MEDS: NovoLOG Insulin SQ SCH ×3 (07:57→17:02)
[2016-09-13] MEDS: NovoLOG Insulin SQ PRN ×4 (07:57→22:55)
[2016-09-13] MEDS ORDERED: Lantus Insulin SQ SCH (08:36)
--- NOTE | 2016-09-13 08:41 | PCM.NOTE ---
Date and Time: 09/13/16 0836 Subjective Assessment: Feeling ok lots of back pain she thinks the spot on her leg is improving less tender and painful now no other new problems Objective Exam General Appearance: obese Neurologic Exam: alert, oriented x 3, cooperative Skin Exam: warm, dry Eye Exam: No scleral icterus, No pale conjunctivae Neck Exam: normal inspection, non-tender, supple Respiratory Exam: normal breath sounds Cardiovascular Exam: regular rate/rhythm, normal heart sounds, No edema Gastrointestinal/Abdomen Exam: soft, normal bowel sounds, No tenderness Extremity Exam: other (right lateral leg wound and redness improving no drainage today mild tender still warm) OBJECTIVE DATA Vital Signs: Vital Signs - 24 hr Temp Pulse Resp BP Pulse Ox 09/13/16 07:08 98 F 82 18 116/57 96 09/13/16 04:00 97.7 F 91 H 18 117/56 97 09/13/16 00:00 98.3 F 81 20 109/53 96 09/12/16 20:00 98.5 F 84 20 114/57 95 09/12/16 16:30 97.8 F 81 22 116/60 20 L 09/12/16 12:08 97.7 F 78 20 115/58 92 L Pain Assessment - Last Documented Pain Intensity 6 Pain Scale Used 0-10 Pain Scale Intake and Output: Intake & Output 09/10/16 09/11/16 09/12/16 09/13/16 11:59 11:59 11:59 11:59 Intake Total 3912 3502 Output Total 500 600 Balance 3412 2902 Weight 107.558 kg Lab Results: Accuchecks Date 09/13/16 Date 09/12/16 Date 09/12/16 Time 07:30 Time 16:30 Time 11:30 Accucheck Value: 379 Accucheck Value: 204 Accucheck Value: 224 Accucheck Value: 305 Lab Results-Last 24 Hours 09/13/16 Range/Units 05:16 Creatinine 0.89 (0.55-1.30) mg/dl Estimated GFR > 60 ML/MIN Radiology Exams: Radiology Procedures Category Date Time Status CHEST 2 VIEWS (PA AND LAT) Routine Exams 09/11/16 11:00 Completed Assessment/Plan (1) Cellulitis and abscess of lower extremity Current Visit: Yes Status: Acute Assessment & Plan: continue vanc re-evaluate in am Code(s): L03.119 - CELLULITIS OF UNSPECIFIED PART OF LIMB; L02.419 - CUTANEOUS ABSCESS OF LIMB, UNSPECIFIED (2) Failure of outpatient treatment Current Visit: Yes Status: Acute Code(s): Z78.9 - OTHER SPECIFIED HEALTH STATUS (3) Diabetes mellitus Current Visit: Yes Status: Acute Qualifiers: Assessment & Plan: uncontrolled tolerated increaed lantus will increase again aggressively with her A1c of 11.7 up to 35 Units hs tonight and monitor. continue her home novolog ac at 18 units + SSI Code(s): E11.9 - TYPE 2 DIABETES MELLITUS WITHOUT COMPLICATIONS (4) Diabetic peripheral neuropathy Current Visit: Yes Status: Chronic Code(s): E11.42 - TYPE 2 DIABETES MELLITUS WITH DIABETIC POLYNEUROPATHY
[2016-09-13] MEDS ORDERED: TROUGH DRUG LEVELS IJ ONE (10:30)
[2016-09-13] MEDS: ZOCOR 20MG PO SCH (22:54)
[2016-09-13] MEDS: Ambien 10 MG PO PRN (22:54)
[2016-09-14] MEDS: Sodium Chloride 0.9% 1000 ML 1,000 ML IV SCH (05:07)
[2016-09-14] MEDS: NovoLOG Insulin SQ SCH ×2 (08:05→11:31)
[2016-09-14] MEDS: LYRICA 150MG PO SCH (08:06)
[2016-09-14] MEDS: Lexapro 10 MG PO SCH (08:06)
[2016-09-14] MEDS: PLAVIX 75 MG Tablet PO SCH (08:06)
[2016-09-14] MEDS: Coreg 3.125 MG PO SCH (08:06)
[2016-09-14] MEDS: BUSPAR 5 MG PO SCH (08:06)
[2016-09-14] MEDS: hydroDIURIL 25 MG PO SCH (08:06)
[2016-09-14] MEDS: Pepcid 20 MG PO SCH (08:06)
[2016-09-14] MEDS: ENOXAPARIN SODIUM SQ SCH (08:08)
[2016-09-14] MEDS: NovoLOG Insulin SQ PRN ×2 (08:08→11:31)
[2016-09-14] MEDS: VANCOCIN 1 GM VIAL*** 1.25 GM in Sodium Chloride 0.9% 250 ML 250 ML IV SCH (08:13)
--- NOTE | 2016-09-14 09:04 | PCM.DS ---
Discharge Summary Date of Admission: 09/11/16 10:23 Admitting Physician: LIZETT RIOS Primary Care Provider: LIZETT RIOS Allergies Allergies ketorolac tromethamine [From Toradol] Allergy (Mild, Verified 09/11/16 11:16) Rash Penicillins Allergy (Mild, Verified 09/11/16 11:16) Rash tramadol Allergy (Mild, Verified 09/11/16 11:16) Rash trazodone Allergy (Mild, Verified 09/11/16 11:16) Rash duloxetine [From Cymbalta] Adverse Reaction (Intermediate, Verified 09/11/16 11: 16) excessive confusion caused patient to black out Hospital Summary - Hospital Course Hospital Course: Pt admitted with LE abscess/cellulitis, failed outpaitent therapy. Improved steadily on Iv vancomycin, ready to go home today. She is having less pain in the leg. She has uncontrolled diabetes with a1c > 11; lantus increased here. She has syncopal episodes and will be sent home on event monitor. - Vitals & Intake/Output Vital Signs: Vital Signs Temperature 97.7 F 09/14/16 08:00 Pulse Rate 86 09/14/16 08:00 Respiratory Rate 18 09/14/16 08:00 Blood Pressure 134/61 09/14/16 08:00 O2 Sat by Pulse Oximetry 95 09/14/16 08:00 Oxygen-Last Documented O2 Percentage 2 Liters = 28% Intake & Output: Intake & Output 09/11/16 09/12/16 09/13/16 09/14/16 11:59 11:59 11:59 11:59 Intake Total 3912 3862 4405 Output Total 507 130 2869 Balance 3412 3062 2955 Weight 107.558 kg - Lab Result Diagrams: 09/11/16 11:00 09/14/16 05:25 Lab Results-Last 24 Hrs: Accuchecks Date 09/13/16 Date 09/13/16 Time 17:02 Time 11:30 Accucheck Value: 309 Accucheck Value: 241 Accucheck Value: 202 Accucheck Value: 209 Lab Results-Last 24 Hours 09/13/16 09/14/16 Range/Units 21:20 05:25 Creatinine 0.76 (0.55-1.30) mg/dl Estimated GFR > 60 ML/MIN Vancomycin Trough 6.7 L (10-20) UG/ML Micro Results-Entire Visit: Accuchecks Date 09/13/16 Date 09/13/16 Time 17:02 Time 11:30 Accucheck Value: 309 Accucheck Value: 241 Accucheck Value: 202 Accucheck Value: 209 - Procedures and Test Procedures and Tests throughout Hospitalization: Therapy Orders & Screens 09/11/16 11:49 PT Screen per Nursing Assess ONCE Comment: Protocol Order Physician Instructions: Greater than 3 points order PT Admission Screenin Reason For Exam: Triggered on Admission Diagnosis: Cellulitis/abscess RLE-failed OP therapy Open Wound/Cellutlitis/Pressure Ulcers: Yes Acute Fx/ORIF/Change in wt bearing status: No Severe MUSCULOSKELETAL pain: No ADL Dysfunction: No Acute CVA w/Hemiparesis/Hemiplegia: No Decreased Functional Mobility/Strength: No Sprain/Strain: No Acute Post-op Mobility Dysfunction: No Total Points: 5 Discharge Exam General Appearance: no apparent distress, obese Neurologic Exam: alert, oriented x 3, cooperative Skin Exam: warm, dry, other (lateral RLE mild erythema, mild warmth) Respiratory Exam: normal breath sounds, lungs clear, No crackles/rales, No rhonchi, No wheezing Cardiovascular Exam: regular rate/rhythm, normal heart sounds, No murmur Gastrointestinal/Abdomen Exam: soft Back Exam: normal inspection Final Diagnosis/Problem List - Final Discharge Diagnosis/Problem (1) Cellulitis and abscess of lower extremity Current Visit: Yes Status: Acute Assessment & Plan: Did great on IV vancomycin; will d/c home on po bactrim. (2) Failure of outpatient treatment Current Visit: Yes Status: Acute (3) Diabetes mellitus Current Visit: Yes Status: Chronic Assessment & Plan: incontrolled; home on larger dose of lantus. (4) Diabetic peripheral neuropathy Current Visit: Yes Status: Chronic (5) Syncopal episodes Current Visit: Yes Status: Chronic Assessment & Plan: home on event monitor, previously ordered outpatient. - Discharge Disposition: Home, Self-Care Condition: Stable Prescriptions: New Sulfamethoxazole/Trimethoprim [Bactrim Ds Tablet] 1 each PO BID #20 tablet Oxycodone / APAP 10/325 mg [Oxycodone-Acetaminophen 10-325] 1 tab PO Q4H PRN PRN #15 tablet PRN Reason: Pain Continue Cyclobenzaprine HCl 10 mg [Cyclobenzaprine 10 MG] 10 ng PO HS PRN PRN PRN Reason: Mild To Moderate Pain Insulin Lispro [Humalog] 18 units SQ TIDWMEALS Insulin Glargine,Hum.rec.anlog [Lantus Solostar] 18 unit SQ HS Carvedilol 3.125 mg [Coreg 3.125 MG] 3.125 mg PO BIDWMEALS Buspirone HCl 5 mg [Buspar 5 mg] 10 mg PO BID Meclizine HCl 25 mg [Antivert 25 mg] 12.5 mg PO TID PRN PRN PRN Reason: Dizziness Ranitidine HCl [Zantac] 150 mg PO BID Pregabalin [Lyrica 150Mg] 150 mg PO TID Clonazepam 0.5 mg [Klonopin 0.5 MG] 0.5 mg PO HS PRN PRN PRN Reason: insomnia Clopidogrel Bisulfate 75 mg [PLAVIX 75 MG Tablet] 75 mg PO DAILY #30 tablet Escitalopram Oxalate 10 mg [Lexapro 10 MG] 20 mg PO DAILY #30 tablet Simvastatin 40 mg [Zocor 40 mg] 40 mg PO DAILY Zolpidem Tartrate [Ambien Cr] 12.5 mg PO HS PRN PRN PRN Reason: Insomnia Hydrochlorothiazide 12.5 mg PO DAILY Discontinued Clindamycin HCl 300 mg PO QID
[2016-09-14 11:33] VITALS: BP 134/69; PULSE 90; O2SAT 94
== END 2016-09-14 12:00 | disposition home or self-care (01) | DRG 603 ==
LOC: MED SURG 10:23
PROVIDERS: ADMIT Family Medicine; ATTEND Family Medicine
DX: L03.115 Cellulitis of right lower limb (principal); L02.415 Cutaneous abscess of right lower limb; Z78.9 Other specified health status; E11.42 Type 2 diabetes mellitus with diabetic polyneuropathy; E11.65 Type 2 diabetes mellitus with hyperglycemia; Z79.4 Long term (current) use of insulin; R55 Syncope and collapse; F41.8 Other specified anxiety disorders; K21.9 Gastro-esophageal reflux disease without esophagitis; M54.30 Sciatica, unspecified side; Z79.899 Other long term (current) drug therapy
CPT/HCPCS: 36415; 71020; 80053; 80202; 81002; 82565; 82962; 83036; 83605; 85025; J1650; J3370; A9270-GY

== ENCOUNTER 2017-04-02 11:16 | Emergency (ER) | payer OTHER ==
--- NOTE | 2017-04-02 11:27 | ERPHSYRPT ---
- History of Present Illness Time Seen by Provider: 04/02/17 11:22 Source: family, police Exam Limitations: clinical condition Physician History: The patient is a morbidly obese 56-year-old female brought in by police at the request of her boyfriend with whom she lives for evaluation for psychiatric issues. The boyfriend provides all of the history because the patient is clinically unable to give a coherent story. The patient has paranoid schizophrenia plus other psychiatric conditions. She has not been taking any of her medicines for at least 1-1/2 weeks and has progressively become worse. She at times is very angry. At other times she is tearful and crying. She hasn 't slept in 3 or 4 days. Today she doesn't know who her boyfriend is or where she is. She has been hospitalized in a psychiatric unit numerous times. She has been to a psychiatric unit in [place] and in [place] in the past. She had a past history of methamphetamine addiction but has not used it in several years. She does not smoke or drink. She does occasional marijuana. PMH of DM. Timing/Duration: week(s) (04/06), gradual onset, worse Severity of Symptoms-Max: severe Severity of Symptoms-Current: severe Context related to: other (not taking meds) Associated Symptoms: angry, depressed, hostile, impaired concentration, paranoid Previous symptoms: same symptoms as today Allergies/Adverse Reactions: No Known Drug Allergies Allergy (Unverified 04/02/17 11:29) Home Medications: Cyclobenzaprine HCl 10 mg [Cyclobenzaprine 10 MG] 10 ng PO HS PRN PRN [History] Insulin Lispro [Humalog] 18 units SQ TIDWMEALS 10/31/14 [History] Insulin Glargine,Hum.rec.anlog [Lantus Solostar] 18 unit SQ HS 04/23/15 [History ] Buspirone HCl 5 mg [Buspar 5 mg] 10 mg PO BID 05/22/15 [History] Carvedilol 3.125 mg [Coreg 3.125 MG] 3.125 mg PO BIDWMEALS 05/22/15 [ History] Meclizine HCl 25 mg [Antivert 25 mg] 12.5 mg PO TID PRN PRN 05/22/15 [ History] Clonazepam 0.5 mg [Klonopin 0.5 MG] 0.5 mg PO HS PRN PRN 08/09/16 [History ] Pregabalin [Lyrica 150Mg] 150 mg PO TID 08/09/16 [History] Ranitidine HCl [Zantac] 150 mg PO BID 08/09/16 [History] Hydrochlorothiazide 12.5 mg PO DAILY 09/11/16 [History] Simvastatin 40 mg [Zocor 40 mg] 40 mg PO DAILY 09/11/16 [History] Zolpidem Tartrate [Ambien Cr] 12.5 mg PO HS PRN PRN 09/11/16 [History] Hx Tetanus, Diphtheria Vaccination/Date Given: No Hx Influenza Vaccination/Date Given: No Hx Pneumococcal Vaccination/Date Given: No - Past Medical History Pertinent Past Medical History: Yes Neurological History: No Pertinent History ENT History: No Pertinent History Cardiac History: Hypertension Respiratory History: No Pertinent History Endocrine Medical History: Diabetes Type II Musculoskeletal History: Degenerative Disk Disease GI Medical History: GERD History: No Pertinent History Psycho-Social History: Anxiety, Depression Female Reproductive Disorders: Abnormal Uterine Bleeding, Fibroids Other Medical History: "BACK PROBLEMS" - Past Surgical History Past Surgical History: Yes Neuro Surgical History: No Pertinent History Cardiac: No Pertinent History Respiratory: No Pertinent History Gastrointestinal: Cholecystectomy Genitourinary: No Pertinent History Musculoskeletal: No Pertinent History Female Surgical History: Section, Tubal Ligation - Social History Smoking Status: Never smoker Exposure to second hand smoke: Yes Drug Use: none Patient Lives Alone: No - Review of Systems Constitutional: No Fever, No Chills Eyes: No Symptoms Ears, Nose, & Throat: No Symptoms Respiratory: No Cough, No Dyspnea Cardiac: No Chest Pain, No Edema, No Syncope Abdominal/Gastrointestinal: No Abdominal Pain, No Nausea, No Vomiting, No Diarrhea Genitourinary Symptoms: No Dysuria Musculoskeletal: No Back Pain, No Neck Pain Skin: No Rash Neurological: No Dizziness, No Focal Weakness, No Sensory Changes Psychological: Depression, Emotional Lability, Hallucinations Endocrine: No Symptoms Hematologic/Lymphatic: No Symptoms Immunological/Allergic: No Symptoms All Other Systems: Reviewed and Negative - Nursing Vital Signs Nursing Vital Signs: Initial Vital Signs Temperature 98.8 F 04/02/17 11:17 Pulse Rate 135 H 04/02/17 11:17 Respiratory Rate 24 04/02/17 11:17 Blood Pressure 134/85 04/02/17 11:17 O2 Sat by Pulse Oximetry 100 04/02/17 11:17 Pain Scale Pain Intensity 0 - Physical Exam General Appearance: moderate distress, obese Eyes, Ears, Nose, Throat Exam: normal ENT inspection, moist mucous membranes Neck Exam: normal inspection, non-tender, supple Respiratory Exam: normal breath sounds, lungs clear, No respiratory distress Cardiovascular Exam: normal heart sounds, tachycardia, No edema Gastrointestinal/Abdominal Exam: soft, No tenderness, No distention Extremities Exam: normal inspection, normal range of motion, No evidence of injury, No edema Current Suicidality: denies suicide plan Neurological Exam: alert, mussel opener II-XII nml as tested, oriented x 3 Appearance: impaired insight, impaired recent memory Behavior/Eye Contact/Speech: alert & uncooperative Thoughts/Hallucinations: delusions Skin Exam: normal color, warm, dry, No rash SpO2 Interpretation: normal - Course EKG Interpreted by Me: Sinus Tach, NORMAL AXIS, NORMAL INTERVALS, NORMAL QRS, NORMAL ST-T Ordered Tests: Active Orders 24 hr Category Date Time Status Psychiatric Evaluation STAT Care 04/02/17 12:30 Active 1200 Calorie ADA Diet 04/03/17 Breakfast Active ACETAMINOPHEN Stat Lab 04/02/17 12:00 Completed CBC W DIFF Stat Lab 04/02/17 11:28 Completed CMP Stat Lab 04/02/17 12:00 Completed CULTURE,URINE Stat Lab 04/02/17 11:28 Received ETHYL ALCOHOL Stat Lab 04/02/17 12:00 Completed HCG QUALITATIVE,SERUM Stat Lab 04/02/17 12:00 Completed Manual Differential NC Stat Lab 04/02/17 11:28 Completed SALICYLATE Stat Lab 04/02/17 12:00 Completed UA W/ MICROSCOPIC Stat Lab 04/02/17 11:28 Completed Urine Triage Profile Stat Lab 04/02/17 11:28 Completed Medication Summary Discontinued Medications Generic Name Dose Route Start Last Admin Trade Name Freq PRN Reason Stop Dose Admin Insulin Human Regular 10 unit 04/02/17 12:53 04/02/17 12:59 Novolin R SQ 04/02/17 12:54 10 unit STAT ONE Administration Insulin Human Regular Confirm 04/02/17 12:59 Novolin R Administered 04/02/17 13:00 Dose 10 unit .ROUTE .STK-MED ONE Insulin Human Regular 10 unit 04/02/17 14:54 04/02/17 15:05 Novolin R SQ 04/02/17 14:55 10 unit STAT ONE Administration Insulin Human Regular Confirm 04/02/17 15:02 Novolin R Administered 04/02/17 15:03 Dose 10 unit .ROUTE .STK-MED ONE Lorazepam 1 mg 04/02/17 11:32 04/02/17 11:38 Ativan 1 Mg PO 04/02/17 11:33 1 mg STAT ONE Administration Lorazepam Confirm 04/02/17 11:40 Ativan 2 Mg/1 Ml Vial Administered 04/02/17 11:41 Dose 2 mg .ROUTE .STK-MED ONE Lorazepam 1 mg 04/02/17 11:42 04/02/17 11:43 Ativan 2 Mg/1 Ml Vial IM 04/02/17 11:43 1 mg STAT ONE Administration Lab/Rad Data: Laboratory Result Diagrams 04/02/17 11:28 04/02/17 12:00 Laboratory Results 04/02/17 04/02/17 04/02/17 Range/Units 15:45 12:00 12:00 WBC (4.0-10.5) K/mm3 RBC (4.1-5.4) M/mm3 Hgb (12.0-16.0) gm/dl Hct (35-47) % MCV (78-100) fl MCH (26-32) pg MCHC (32-36) g/dl RDW (11.5-14.0) % Plt Count (150-450) K/mm3 MPV (6-9.5) fl Absolute Neutrophils (1.4-6.9) Segmented Neutrophils (36.0-66.0) % Lymphocytes (Manual) (24-44) % Monocytes (Manual) (0.0-12.0) % Eosinophils (Manual) (0.00-3.0) % Differential Comment Platelet Estimate (NORMAL) Sodium 135 L (136-145) mEq/L Potassium 4.2 (3.5-5.1) mEq/L Chloride 97 L (98-107) mEq/L Carbon Dioxide 21.1 (21-32) mEq/L Anion Gap 20.9 H (5-15) MEQ/L BUN 12 (9-20) mg/dL Creatinine 1.25 (0.55-1.30) mg/dl Estimated GFR 47 ML/MIN Glucose 465 H (70-110) MG/DL Calcium 9.7 (8.5-10.1) mg/dL Total Bilirubin 0.50 (0.2-1.0) mg/dL AST 27 (15-37) U/L ALT 43 (12-78) U/L Alkaline Phosphatase 102 (46-116) U/L Ammonia 14 (11-32) MMOL/l Serum Total Protein 8.3 H (6.4-8.2) gm/dL Albumin 3.6 (3.4-5.0) g/dL Serum , Qual NEGATIVE (Negative) Ur Collection Type Urine Color (YELLOW) Urine Appearance (CLEAR) Urine pH (5-6) Ur Specific [place] (1.005-1.025) Urine Protein (Negative) Urine Ketones (NEGATIVE) Urine Blood (0-5) Brodie/ul Urine Nitrite (NEGATIVE) Urine Bilirubin (NEGATIVE) Urine Urobilinogen (0-1) mg/dL Ur Leukocyte Esterase (NEGATIVE) Urine Microscopic RBC (0-2) /HPF Urine Microscopic WBC (0-5) /HPF Ur Epithelial Cells (FEW) /HPF Urine Bacteria (NEGATIVE) /HPF Urine Culture Reflexed (NO) Urine Glucose (NEGATIVE) mg/dL Salicylates 2.9 (2.8-20.0) mg/dl Urine Opiates Level (NEGATIVE) Ur Methadone (NEGATIVE) Acetaminophen < 2.0 L (10-30) ug/ml Urine Barbiturates (NEGATIVE) Ur Phencyclidine (PCP) (NEGATIVE) Urine Amphetamine (NEGATIVE) U Benzodiazepine Level (NEGATIVE) Urine Cocaine (NEGATIVE) Urine Marijuana (THC) (NEGATIVE) Ethyl Alcohol < 0.010 (0.00-0.01) % Specimen Received 04/02/17 04/02/17 04/02/17 Range/Units 11:28 11:28 11:28 WBC 9.7 (4.0-10.5) K/mm3 RBC 5.22 (4.1-5.4) M/mm3 Hgb 14.0 (12.0-16.0) gm/dl Hct 42.0 (35-47) % MCV 80.5 (78-100) fl MCH 26.8 (26-32) pg MCHC 33.3 (32-36) g/dl RDW 13.9 (11.5-14.0) % Plt Count 362 (150-450) K/mm3 MPV 10.4 H (6-9.5) fl Absolute Neutrophils 7.6 (1.4-6.9) Segmented Neutrophils 79 H (36.0-66.0) % Lymphocytes (Manual) 18 L (24-44) % Monocytes (Manual) 2 (0.0-12.0) % Eosinophils (Manual) 1 (0.00-3.0) % Differential Comment NORMAL Platelet Estimate NORMAL (NORMAL) Sodium (136-145) mEq/L Potassium (3.5-5.1) mEq/L Chloride (98-107) mEq/L Carbon Dioxide (21-32) mEq/L Anion Gap (5-15) MEQ/L BUN (9-20) mg/dL Creatinine (0.55-1.30) mg/dl Estimated GFR ML/MIN Glucose (70-110) MG/DL Calcium (8.5-10.1) mg/dL Total Bilirubin (0.2-1.0) mg/dL AST (15-37) U/L ALT (12-78) U/L Alkaline Phosphatase (46-116) U/L Ammonia (11-32) MMOL/l Serum Total Protein (6.4-8.2) gm/dL Albumin (3.4-5.0) g/dL Serum , Qual (Negative) Ur Collection Type VOID Urine Color YELLOW (YELLOW) Urine Appearance HAZY (CLEAR) Urine pH 5.0 (5-6) Ur Specific [place] 1.015 (1.005-1.025) Urine Protein TRACE (Negative) Urine Ketones MODERATE-40 (NEGATIVE) Urine Blood MODERATE (0-5) Brodie/ul Urine Nitrite POSITIVE (NEGATIVE) Urine Bilirubin NEGATIVE (NEGATIVE) Urine Urobilinogen NORMAL (0-1) mg/dL Ur Leukocyte Esterase TRACE (NEGATIVE) Urine Microscopic RBC 2-5 (0-2) /HPF Urine Microscopic WBC 2-5 (0-5) /HPF Ur Epithelial Cells MODERATE (FEW) /HPF Urine Bacteria PACKED (NEGATIVE) /HPF Urine Culture Reflexed YES (NO) Urine Glucose 1000 (NEGATIVE) mg/dL Salicylates (2.8-20.0) mg/dl Urine Opiates Level NEG. (NEGATIVE) Ur Methadone NEG. (NEGATIVE) Acetaminophen (10-30) ug/ml Urine Barbiturates NEG. (NEGATIVE) Ur Phencyclidine (PCP) NEG. (NEGATIVE) Urine Amphetamine NEG. (NEGATIVE) U Benzodiazepine Level NEG. (NEGATIVE) Urine Cocaine NEG. (NEGATIVE) Urine Marijuana (THC) NEG. (NEGATIVE) Ethyl Alcohol (0.00-0.01) % Specimen Received 04/02/17 1130 - Progress Progress: improved Progress Note: 04/02/17 18:18 Pt to be transferred to [facility] in [place] under court-ordered Emergency Intermediate. Counseled pt/family regarding: lab results, diagnosis - Departure Time of Disposition: 18:17 Departure Disposition: Transfer (transfer to [facility], per DR Sanchez.) Clinical Impression: Hallucination Condition: Stable Critical Care Time: No Referrals: LIZETT RIOS [Primary Care Provider] -
[2017-04-02] MEDS ORDERED: Ativan 1 MG PO ONE (11:32)
[2017-04-02] MEDS ORDERED: Ativan 2 MG/1 ML VIAL ONE (11:40)
[2017-04-02] MEDS ORDERED: Ativan 2 MG/1 ML VIAL IM ONE (11:42)
[2017-04-02 11:54] LABS: Mean Cell Volume 80.5 fl (78-100); Mean Corpuscular Hemoglobin 26.8 pg (26-32); Mean Corpuscular Hgb Concent. 33.3 g/dl (32-36); Mean Platelet Volume 10.4 fl (6-9.5); Platelet Count 362 K/mm3 (150-450); Red Blood Count 5.22 M/mm3 (4.1-5.4); Red Cell Distribution Width 13.9 % (11.5-14.0); White Blood Count 9.7 K/mm3 (4.0-10.5)
[2017-04-02 12:27] LABS: Amphetamine,Urine NEG. (NEGATIVE); Barbiturate,Urine NEG. (NEGATIVE); Benzodiazepine,Urine NEG. (NEGATIVE); Cocaine,Urine NEG. (NEGATIVE); Methadone,Urine NEG. (NEGATIVE); Opiate,Urine NEG. (NEGATIVE); PCP,Urine NEG. (NEGATIVE); THC,Urine NEG. (NEGATIVE)
[2017-04-02 12:33] LABS: Appearance HAZY (CLEAR); Glucose 1000 mg/dL (NEGATIVE); Leukocyte Esterase TRACE (NEGATIVE); Nitrite POSITIVE (NEGATIVE); Protein,Urine Dip TRACE (Negative); Specific Gravity 1.015 (1.005-1.025)
[2017-04-02 12:34] LABS: Bacteria PACKED /HPF (NEGATIVE); Bilirubin NEGATIVE (NEGATIVE); Blood MODERATE Ery/ul (0-5); Epithelial Cells MODERATE /HPF (FEW); Ketones MODERATE-40 (NEGATIVE); Urobilinogen NORMAL mg/dL (0-1)
[2017-04-02 12:39] LABS: ALBUMIN 3.6 g/dL (3.4-5.0); ALKALINE PHOSPHATASE 102 U/L (46-116); ANION GAP 20.9 MEQ/L (5-15); BLOOD UREA NITROGEN 12 mg/dL (9-20); CHLORIDE 97 mEq/L (98-107); Calcium 9.7 mg/dL (8.5-10.1); Carbon Dioxide 21.1 mEq/L (21-32); Creatinine 1 1.25 mg/dl (0.55-1.30); EST GLOMERULAR FILTRATION RATE 47 ML/MIN; ETHYL ALCOHOL < 0.010 % (0.00-0.01); Glucose 465 MG/DL (70-110); Potassium 4.2 mEq/L (3.5-5.1); SALICYLATE 2.9 mg/dl (2.8-20.0); SGOT/AST 27 U/L (15-37); SGPT/ALT 43 U/L (12-78); SODIUM 135 mEq/L (136-145); Total Protein 8.3 gm/dL (6.4-8.2)
[2017-04-02 12:46] LABS: ACETAMINOPHEN < 2.0 ug/ml (10-30)
[2017-04-02 12:48] LABS: ABSOLUTE NEUTROPHILS 7.6 (1.4-6.9); Eosinophil 1 % (0.00-3.0); Lymphocytes 18 % (24-44); Monocyte 2 % (0.0-12.0); Neutrophils 79 % (36.0-66.0); Platelet Estimate NORMAL (NORMAL); Total Cells Counted 100
[2017-04-02] MEDS ORDERED: NovoLIN R SQ ONE ×2 (12:53→14:54)
[2017-04-02] MEDS ORDERED: NovoLIN R ONE ×2 (12:59→15:02)
[2017-04-02 18:57] VITALS: BP 120/72; PULSE 78; O2SAT 97
== END 2017-04-02 18:56 ==
LOC: ED 11:16
DX: R44.3 Hallucinations, unspecified (principal); F20.0 Paranoid schizophrenia; E11.9 Type 2 diabetes mellitus without complications; Z79.899 Other long term (current) drug therapy; Z79.4 Long term (current) use of insulin; I10 Essential (primary) hypertension
CPT/HCPCS: 36415; 80053; 80307; 81000; 82140; 82962; 84703; 85025; 87077; 87086; 87186; 90791; 96372; 99285; G0481; J2060; Q3014; A9270-GY

== ENCOUNTER 2017-06-22 07:26 | Day surgery (SDC) | payer OTHER ==
[2017-06-22] MEDS ORDERED: Lactated Ringers 1,000 ML IV ONE (07:40)
[2017-06-22] MEDS ORDERED: TETRACAINE 0.5% STERI-UNIT SOL OP ONE ×2 (08:00)
[2017-06-22] MEDS ORDERED: Zofran 4 MG/2 ML VIAL IV PRN (08:00)
[2017-06-22] MEDS ORDERED: ACETAZOLAMIDE 250 MG TABLET PO ONE (08:00)
[2017-06-22] MEDS ORDERED: Ak-Dilate OPHTHALMIC*** 0.71 ML, Cyclogyl 1% OPHTH SOL 5 ML 0.71 ML, GATIFLOXACIN 0.5% ... OP ONE ×4 (08:00)
[2017-06-22] MEDS ORDERED: Lactated Ringers 1,000 ML IV SCH (08:00)
[2017-06-22 11:50] VITALS: O2SAT 98
[2017-06-22 11:56] VITALS: BP 136/82; PULSE 88
[2017-06-22] MEDS ORDERED: LIDOCAINE HCL 1% AMPUL 5 ML IJ ONE (13:45)
[2017-06-22] MEDS ORDERED: BETADINE 5% OPHTHALMIC 30 ML OP ONE (13:45)
[2017-06-22] MEDS ORDERED: BSS 500 ML, Fortaz/Tazicef 1 GM** 0.2 G IO ONE ×2 (13:45)
[2017-06-22] MEDS ORDERED: Epinephrine Preservative Free 1 MG/ML INTRAOP ONE (13:45)
--- NOTE | 2017-06-22 14:52 | OP ---
DATE/TIME OF OPERATION: 06/22/2017 1850 TIME DICTATED: 1247 PREOPERATIVE DIAGNOSIS: Senile cataract of left eye. POSTOPERATIVE DIAGNOSIS: Senile cataract of left eye. SURGEON: Desirae Thompson MD BACTERIOLOGIST SOIL: None. OPERATION: Cataract extraction of left eye with an intraocular lens implant. STANDARD __X___ COMPLEX ANESTHESIA: MAC. ___X___ Monitored anesthesia care in combination with topical and intra-cameral anesthesia (because of the established specific risk of reflux, arrhythmias, or an anxiety attack associated with ocular manipulation as well as difficulty of the chain saw operator to manage such potentially catastrophic events while simultaneously attempting to complete the surgical procedure, it was deemed necessary for the patient's safety to have an anesthesiologist or a nurse security alarm technician present during the procedure whenever possible. The anesthesiologist or the nurse security alarm technician was utilized to monitor and regulate the intravenous sedation of the patient, so the patient was cooperative, relaxed, and comfortable). Topical anesthesia using Tetracaine eye drops together with intra cameral anesthesia using Lidocaine 1% MPF. The nurse was utilized to monitor the patient. ANESTHESIA PROVIDER: Nain Irwin CRNA. COMPLICATIONS: None. BLOOD LOSS: None. INDICATIONS: The patient is undergoing cataract surgery in the hopes of eliminating the visual complaints and difficulty. PROCEDURE: After arriving at the facility's outpatient surgery area, an IV was started; the patient was given 5 mg of p.o. Versed. (If an anesthesia provider was not monitoring the patient) The patient was then given topical anesthetic Tetracaine eye drops. A cotton pellet was soaked into a solution of a combination of Zymaxid 0.5%, Pardeep-Synephrine 2.5% and Ocufen (other drops might have been substituted referenced in the patient's record). The pellet was inserted by the RN into the lower conjunctival cul-de-sac with a sterile forceps and left for 20 minutes. The pellet was then removed by the RN with a sterile forceps before taking the patient to the operating room. The preoperative area nurse identified the patient and marked the correct eye to be operated on. I identified the correct eye to be operated on and marked it appropriately in the outpatient surgery area. The patient was then taken into the operating room. Tetracaine eye drops were installed again in the correct eye. The eyelids and the lashes and the lid margins were scrubbed with Betadine solution. One drop of the diluted Betadine solution was placed in the conjunctival cul-de-sac for 45 seconds and then was irrigated. A drop of Tetracaine Gel was placed in the conjunctival cul-de-sac. The patient's forehead was taped to secure it during the procedure. The patient was monitored. The patient was then draped in the usual way for this procedure. An eye speculum was used to separate the eyelids. The eye was then fixated and a temporal 2.5 mm incision was made in the clear cornea temporally at the limbus. Through the incision, 0.25 cc of 1% non-preserved lidocaine was injected into the anterior chamber for intracameral anesthesia. The anterior chamber was then filled with viscoelastic. The pupil was small. I felt that it would be safer to mechanically dilate the pupil. A Malyugin ring was used at this point which dilated the pupil. That was removed at the end of the procedure prior to aspiration of the viscoelastic from the anterior chamber and posterior to the intraocular lens implant. The cataract had a great amount of cortical changes. That rendered seeing the anterior capsule difficult for a safe performance of an anterior capsulotomy. I injected an air bubble into the anterior chamber. I then injected 1 ML of vision blue solution into the anterior chamber. The vision blue solution was irrigated from the anterior chamber after 30 seconds. The anterior capsule was stained which facilitated performing the anterior capsulotomy safely. After that was completed, a cystotome was introduced into the anterior chamber and a round anterior capsulotomy was performed. The capsule was removed by a forceps. Hydrodissection was next carried utilizing a 25-gauge cannula and balanced salt solution to delineate the cortical material from the capsule and the nucleus from the cortical material. The nucleus was rotated freely into the capsular bag with no difficulty. The phaco tip of the [employer] Phacoemulsifier was introduced into the anterior chamber and two grooves were made into the nucleus 90 degrees apart. Using two spatulas resulted into the nucleus being fractured into four quadrants. The phaco tip was then used to remove each quadrant of the nucleus. Viscoelastic was used during this process to protect the corneal endothelium. Once the entire nucleus was removed, the phaco tip then was removed and the irrigation tip was introduced into the eye and the cortex was removed. The posterior capsule was polished. It was noticed that there was a tear into the posterior capsule with few vitreous strands into the pupil plan. An anterior vitrectomy was performed. A 24.50 diopter, [id number], posterior chamber lens implant, was inspected and found to be grossly normal. The implant was inserted into the implant injector cartridge; Viscoelastic again was introduced into the anterior chamber, which filled the capsular bag. The implant injector's cartridge tip was placed at the limbal wound and the posterior chamber implant was released into the capsular bag and rotated appropriately. The implant was found to be into the capsular bag and it was centered. ___X__ 0.2 ml of Tri-Moxi was introduced via 27 gauge cannula into the vitreous cavity through the ciliary processes. Viscoelastic was aspirated from the anterior chamber and posterior to the intraocular lens implant from the capsular bag using the irrigating tip. The anterior chamber was irrigated and filled with 5 cc antibiotic solution (500 cc of BSS plus 2 ml of Fortaz 100 mg/ml) ( if patient was not allergic to the medication). The lips of the corneal incision were hydrated using BSS solution. The anterior chamber was checked and found to be water tight. One drop each of antibiotic, steroid and NSAID drops (refer to chart for drops used) were placed in the conjunctival cul-de-sac of the operated eye. Patient tolerated the procedure quite well and left the operating room in satisfactory condition. DISCHARGE SUMMARY: The patient was released in stable condition. The patient and those with the patient were given an instruction sheet as of how to care for the eye after surgery as well as counseling on any abnormal laboratory studies by the postoperative RN. The patient was also given an appointment card for follow-up in the office and is to call immediately for any difficulties including but not limited to pain in the eye, decreased vision, discharge from the eye, headache and or fever. DISCHARGE DIAGNOSIS: Pseudophakia of left eye.
== END 2017-06-22 11:25 | disposition home or self-care (01) ==
LOC: SDC 07:26
PROVIDERS: ATTEND Ophthalmology
PROC: 08RK3JZ Replacement of Left Lens with Synthetic Substitute, Percutaneous Approach (ICD-10-PCS; principal; 2017-06-22)
DX: H25.9 Unspecified age-related cataract (principal); E11.9 Type 2 diabetes mellitus without complications; I10 Essential (primary) hypertension; E78.00 Pure hypercholesterolemia, unspecified; I51.9 Heart disease, unspecified
CPT/HCPCS: 82962; C1780; J0171; A9270-GY

== ENCOUNTER 2017-07-20 07:27 | Day surgery (SDC) | payer OTHER ==
[2017-07-20] MEDS ORDERED: DIPRIVAN 200 MG/20 ML IV ONE (07:28)
[2017-07-20] MEDS ORDERED: Lactated Ringers 1,000 ML IV ONE (07:52)
[2017-07-20] MEDS ORDERED: Zofran 4 MG/2 ML VIAL IV PRN (09:00)
[2017-07-20] MEDS ORDERED: Ak-Dilate OPHTHALMIC*** 0.71 ML, Cyclogyl 1% OPHTH SOL 5 ML 0.71 ML, GATIFLOXACIN 0.5% ... OP ONE ×4 (09:00)
[2017-07-20] MEDS ORDERED: TETRACAINE 0.5% STERI-UNIT SOL OP ONE ×2 (09:00)
[2017-07-20] MEDS ORDERED: Lactated Ringers 1,000 ML IV SCH (09:00)
[2017-07-20] MEDS: ACETAZOLAMIDE 250 MG TABLET PO ONE ×2 (09:45→11:07)
[2017-07-20] MEDS ORDERED: LIDOCAINE HCL 1% AMPUL 5 ML IJ ONE (10:00)
[2017-07-20] MEDS ORDERED: Epinephrine Preservative Free 1 MG/ML INTRAOP ONE (10:00)
[2017-07-20] MEDS ORDERED: BETADINE 5% OPHTHALMIC 30 ML OP ONE (10:00)
[2017-07-20] MEDS ORDERED: BSS 500 ML, Fortaz/Tazicef 1 GM** 0.2 G IO ONE ×2 (10:00)
[2017-07-20 11:41] VITALS: BP 117/71; PULSE 89; O2SAT 98
--- NOTE | 2017-07-20 15:06 | OP ---
DATE/TIME OF OPERATION: 07/20/2017 1000 TIME DICTATED: 1321 PREOPERATIVE DIAGNOSIS: Senile cataract of right eye. POSTOPERATIVE DIAGNOSIS: Senile cataract of right eye. SURGEON: Desirae Thompson MD ROOFING APPRENTICE: None. OPERATION: Cataract extraction of right eye with an intraocular lens implant. STANDARD __X___ COMPLEX ANESTHESIA: MAC. ___X___ Monitored anesthesia care in combination with topical and intra-cameral anesthesia (because of the established specific risk of reflux, arrhythmias, or an anxiety attack associated with ocular manipulation as well as difficulty of the nuclear physician to manage such potentially catastrophic events while simultaneously attempting to complete the surgical procedure, it was deemed necessary for the patient's safety to have an anesthesiologist or a nurse supervisor cell operation present during the procedure whenever possible. The anesthesiologist or the nurse supervisor cell operation was utilized to monitor and regulate the intravenous sedation of the patient, so the patient was cooperative, relaxed, and comfortable). Topical anesthesia using Tetracaine eye drops together with intra cameral anesthesia using Lidocaine 1% MPF. The nurse was utilized to monitor the patient. ANESTHESIA PROVIDER: Gregorio Barker CRNA. COMPLICATIONS: None. BLOOD LOSS: None. INDICATIONS: The patient is undergoing cataract surgery in the hopes of eliminating the visual complaints and difficulty. PROCEDURE: After arriving at the facility's outpatient surgery area, an IV was started; the patient was given 5 mg of p.o. Versed. (If an anesthesia provider was not monitoring the patient) The patient was then given topical anesthetic Tetracaine eye drops. A cotton pellet was soaked into a solution of a combination of Zymaxid 0.5%, Pardeep-Synephrine 2.5% and Ocufen (other drops might have been substituted referenced in the patient's record). The pellet was inserted by the RN into the lower conjunctival cul-de-sac with a sterile forceps and left for 20 minutes. The pellet was then removed by the RN with a sterile forceps before taking the patient to the operating room. The preoperative area nurse identified the patient and marked the correct eye to be operated on. I identified the correct eye to be operated on and marked it appropriately in the outpatient surgery area. The patient was then taken into the operating room. Tetracaine eye drops were installed again in the correct eye. The eyelids and the lashes and the lid margins were scrubbed with Betadine solution. One drop of the diluted Betadine solution was placed in the conjunctival cul-de-sac for 45 seconds and then was irrigated. A drop of Tetracaine Gel was placed in the conjunctival cul-de-sac. The patient's forehead was taped to secure it during the procedure. The patient was monitored. The patient was then draped in the usual way for this procedure. An eye speculum was used to separate the eyelids. The eye was then fixated and a temporal 2.5 mm incision was made in the clear cornea temporally at the limbus. Through the incision, 0.25 cc of 1% non-preserved lidocaine was injected into the anterior chamber for intracameral anesthesia. The anterior chamber was then filled with viscoelastic. The pupil was small. I felt that it would be safer to mechanically dilate the pupil. A Malyugin ring was used at this point which dilated the pupil. That was removed at the end of the procedure prior to aspiration of the viscoelastic from the anterior chamber and posterior to the intraocular lens implant. The cataract had a great amount of cortical changes. That rendered seeing the anterior capsule difficult for a safe performance of an anterior capsulotomy. I injected an air bubble into the anterior chamber. I then injected 1 ML of vision blue solution into the anterior chamber. The vision blue solution was irrigated from the anterior chamber after 30 seconds. The anterior capsule was stained which facilitated performing the anterior capsulotomy safely. After that was completed, a cystotome was introduced into the anterior chamber and a round anterior capsulotomy was performed. The capsule was removed by a forceps. Hydrodissection was next carried utilizing a 25-gauge cannula and balanced salt solution to delineate the cortical material from the capsule and the nucleus from the cortical material. The nucleus was rotated freely into the capsular bag with no difficulty. The phaco tip of the [employer] Phacoemulsifier was introduced into the anterior chamber and two grooves were made into the nucleus 90 degrees apart. Using two spatulas resulted into the nucleus being fractured into four quadrants. The phaco tip was then used to remove each quadrant of the nucleus. Viscoelastic was used during this process to protect the corneal endothelium. Once the entire nucleus was removed, the phaco tip then was removed and the irrigation tip was introduced into the eye and the cortex was removed. The posterior capsule was polished. It was noticed that there was a tear into the posterior capsule with few vitreous strands into the pupil plan. An anterior vitrectomy was performed. A 24.00 diopter, [id number], posterior chamber lens implant, was inspected and found to be grossly normal. The implant was inserted into the implant injector cartridge; Viscoelastic again was introduced into the anterior chamber, which filled the capsular bag. The implant injector's cartridge tip was placed at the limbal wound and the posterior chamber implant was released into the capsular bag and rotated appropriately. The implant was found to be into the capsular bag and it was centered. ___X__ 0.2 ml of Tri-Moxi was introduced via 27 gauge cannula into the vitreous cavity through the ciliary processes. Viscoelastic was aspirated from the anterior chamber and posterior to the intraocular lens implant from the capsular bag using the irrigating tip. The anterior chamber was irrigated and filled with 5 cc antibiotic solution (500 cc of BSS plus 2 ml of Fortaz 100 mg/ml) ( if patient was not allergic to the medication). The lips of the corneal incision were hydrated using BSS solution. The anterior chamber was checked and found to be water tight. One drop each of antibiotic, steroid and NSAID drops (refer to chart for drops used) were placed in the conjunctival cul-de-sac of the operated eye. Patient tolerated the procedure quite well and left the operating room in satisfactory condition. DISCHARGE SUMMARY: The patient was released in stable condition. The patient and those with the patient were given an instruction sheet as of how to care for the eye after surgery as well as counseling on any abnormal laboratory studies by the postoperative RN. The patient was also given an appointment card for follow-up in the office and is to call immediately for any difficulties including but not limited to pain in the eye, decreased vision, discharge from the eye, headache and or fever. DISCHARGE DIAGNOSIS: Pseudophakia of right eye.
== END 2017-07-20 11:45 | disposition home or self-care (01) ==
LOC: SDC 07:27
PROVIDERS: ATTEND Ophthalmology
PROC: 08RJ3JZ Replacement of Right Lens with Synthetic Substitute, Percutaneous Approach (ICD-10-PCS; principal; 2017-07-20)
PROC: 08B43ZZ Excision of Right Vitreous, Percutaneous Approach (ICD-10-PCS; 2017-07-20)
DX: H25.9 Unspecified age-related cataract (principal); E11.9 Type 2 diabetes mellitus without complications; E78.00 Pure hypercholesterolemia, unspecified; I10 Essential (primary) hypertension; Z79.899 Other long term (current) drug therapy
CPT/HCPCS: 66984; 67005; 82962; C1780; J0171; J2704; A9270-GY

== ENCOUNTER 2017-09-07 17:22 | Observation (INO) | payer OTHER ==
[2017-09-07] MEDS ORDERED: Sodium Chloride 0.9% 1000 ML 1,000 ML IV STA ×2 (17:52→19:17)
--- NOTE | 2017-09-07 17:58 | ERPHSYRPT ---
- History of Present Illness Time Seen by Provider: 09/07/17 17:53 Source: patient Exam Limitations: no limitations Patient Subjective Stated Complaint: mental breakdown Triage Nursing Assessment: pt is alert and oriented. pt is ambulatory. pt is very upset, weepy, and keeps begging me to "give her something to kill her". pt is repeating "I just want to . please let me ". pt is apologotic for being weepy and for "calling the ambulance". pt is tachycardic, and has elevated blood pressure. pt is very forthcoming with what is bothering her. pt states that her boyfriend "[place]" does not allow her to take her medications and made her get rid of her dogs today triggering her anxiety. Physician History: 57-year-old white female with history of paranoid schizophrenia, high blood pressure, diabetes type 2, degenerative disc disease, GERD, depression Arrives with complaint of "having a nervous breakdown" Patient states that she wants to she states that she tried overdosing last night by taking 3 of her amitriptyline 100 mg tablets also taking Ambien She apparently has told the nurse that her boyfriend will not let her take her medications for psych, she states that he made her get rid of her dog Patient is somewhat anxious and tearful. Past medical history includes high blood pressure, diabetes, degenerative disc disease, GERD, anxiety, depression, uterine bleeding, fibroids, chronic back problems, paranoid schizophrenia. Past surgical history includes cholecystectomy, , tubal ligation Patient states that she has used meth, heroin and marijuana in the past Timing/Duration: yesterday Severity: moderate Modifying Factors: Improves With: medication (patient states she tried overdosing on her medications last night) Associated Symptoms: No nausea, No vomiting, No abdominal pain, No shortness of breath, No heartburn, No diaphoresis, No cough, No chills, No chest pain, No fever, No headaches, No loss of appetite, No malaise, No rash, No syncope, No seizure, No weakness Allergies/Adverse Reactions: ketorolac [From Toradol] Allergy (Intermediate, Verified 07/12/17 11:29) Rash tramadol Allergy (Intermediate, Verified 07/12/17 11:29) Rash Home Medications: Insulin Lispro [Humalog] 16 units SQ QID 10/31/14 [History] Insulin Glargine,Hum.rec.anlog [Lantus Solostar] 18 unit SQ HS 04/23/15 [History ] Buspirone HCl 5 mg [Buspar 5 mg] 10 mg PO BID 05/22/15 [History] Carvedilol 3.125 mg [Coreg 3.125 MG] 3.125 mg PO BIDWMEALS 05/22/15 [ History] Pregabalin [Lyrica 150Mg] 150 mg PO TID 08/09/16 [History] Ranitidine HCl [Zantac] 150 mg PO BID 08/09/16 [History] Simvastatin 40 mg [Zocor 40 mg] 40 mg PO DAILY 09/11/16 [History] Zolpidem Tartrate [Ambien Cr] 12.5 mg PO HS PRN PRN 09/11/16 [History] Aspirin EC 81 mg [Ecotrin 81 mg] 81 mg PO DAILY 06/15/17 [History] Cyclobenzaprine HCl [Flexeril] 10 mg PO HS 07/12/17 [History] Escitalopram Oxalate 10 mg [Lexapro 10 MG] 30 mg PO DAILY 07/12/17 [History] Lisinopril [Zestril] 2.5 mg PO DAILY 07/12/17 [History] AMITRIPTYLINE HCL 50 mg Tab [AMITRIPTYLINE HCL 50 mg Tablet] 100 mg PO HS [History] Hx Tetanus, Diphtheria Vaccination/Date Given: No Hx Influenza Vaccination/Date Given: No Hx Pneumococcal Vaccination/Date Given: No Immunizations Up to Date: Yes - Review of Systems Constitutional: No Fever, No Chills Eyes: No Symptoms Ears, Nose, & Throat: No Symptoms Respiratory: No Cough, No Dyspnea Cardiac: No Chest Pain, No Edema, No Syncope Abdominal/Gastrointestinal: No Abdominal Pain, No Nausea, No Vomiting, No Diarrhea Genitourinary Symptoms: No Dysuria Musculoskeletal: No Back Pain, No Neck Pain Skin: No Rash Neurological: No Dizziness, No Focal Weakness, No Sensory Changes Psychological: Anxiety, Suicidal Ideations Endocrine: No Symptoms All Other Systems: Reviewed and Negative - Past Medical History Pertinent Past Medical History: Yes Neurological History: Other ENT History: Cataracts Cardiac History: High Cholesterol, Hypertension, Other Respiratory History: No Pertinent History Endocrine Medical History: Diabetes Type II Musculoskeletal History: Arthritis, Degenerative Disk Disease, Fibromyalgia GI Medical History: GERD History: Other Psycho-Social History: Anxiety, Bipolar, Depression, Other Female Reproductive Disorders: Fibroids Other Medical History: "BACK PROBLEMS" has passed out several times in her life from blood sugar being too high or too low, history of frequest kidney infections in her life, stated has been drug free for 6 months she used meth, heroin, and "smoked pot" for several years. goes to [employer] because she hears voices - Past Surgical History Past Surgical History: Yes Neuro Surgical History: No Pertinent History Cardiac: No Pertinent History Respiratory: No Pertinent History Gastrointestinal: Cholecystectomy Genitourinary: No Pertinent History Musculoskeletal: No Pertinent History Female Surgical History: Tubal Ligation Other Surgical History: patient unsure of all of her surgeries stated she cant remember if she had her children csection or natural, patient not sure if she has had her gall bladder removed or not - Social History Smoking Status: Former smoker Exposure to second hand smoke: Yes Drug Use: marijuana, methamphetamines, heroin Patient Lives Alone: No - Female History Hx Now: No - Nursing Vital Signs Nursing Vital Signs: Initial Vital Signs Temperature 98.4 F 09/07/17 17:29 Pulse Rate 134 H 09/07/17 17:29 Respiratory Rate 23 09/07/17 17:29 Blood Pressure 153/102 09/07/17 17:29 O2 Sat by Pulse Oximetry 98 09/07/17 17:29 Pain Scale Pain Intensity 0 - Physical Exam General Appearance: other (Well-developed obese white female tearful, hyperventilating) Eye Exam: PERRL/EOMI, eyes nml inspection Ears, Nose, Throat Exam: normal ENT inspection, TMs normal, pharynx normal, moist mucous membranes Neck Exam: normal inspection, non-tender, supple, full range of motion Respiratory Exam: normal breath sounds, lungs clear, No respiratory distress Cardiovascular Exam: normal heart sounds, normal peripheral pulses, tachycardia Gastrointestinal/Abdomen Exam: soft, normal bowel sounds, No tenderness, No mass Back Exam: normal inspection, normal range of motion, No CVA tenderness, No vertebral tenderness Extremity Exam: normal inspection, normal range of motion, pelvis stable Neurologic Exam: alert, oriented x 3, cooperative, normal mood/affect, nml cerebellar function, nml station & gait, sensation nml, other (patient's tearful and hyperventilating), No motor deficits Skin Exam: normal color, warm, dry, No rash Lymphatic Exam: No adenopathy SpO2 Interpretation: normal (98%) SpO2: 98 Oxygen Delivery: Room Air - Course Nursing assessment & vital signs reviewed: Yes EKG Interpreted by Me: RATE (110 bpm), Sinus Tach, NORMAL AXIS (EKG: Sinus tachycardia, 110 bpm, normal axis, no acute ST or T wave changes noted, no acute changes as compared to April 02, 2017.) Ordered Tests: Active Orders 24 hr Category Date Time Status Accucheck STAT Care 09/07/17 17:52 Active Bedspread Inspector STAT Care 09/07/17 17:52 Active EKG-ER Only STAT Care 09/07/17 17:52 Active IV Insertion STAT Care 09/07/17 17:52 Active ACETAMINOPHEN Stat Lab 09/07/17 18:13 Completed CBC W DIFF Stat Lab 09/07/17 18:13 Completed CMP Stat Lab 09/07/17 18:13 Completed ETHYL ALCOHOL Stat Lab 09/07/17 18:13 Completed SALICYLATE Stat Lab 09/07/17 18:13 Completed UA W/RFX UR CULTURE Stat Lab 09/07/17 17:52 Ordered Urine Triage Profile Stat Lab 09/07/17 17:52 Ordered Transfer Order Routine Transfer 09/07/17 Ordered Medication Summary Generic Name Dose Route Start Last Admin Trade Name Freq PRN Reason Stop Dose Admin Sodium Chloride 1,000 mls @ 999 mls/hr 09/07/17 19:17 09/07/17 19:46 Sodium Chloride 0.9% 1000 Ml IV 09/07/17 20:17 999 mls/hr .Q1H1M STA Administration Discontinued Medications Generic Name Dose Route Start Last Admin Trade Name Freq PRN Reason Stop Dose Admin Sodium Chloride 1,000 mls @ 999 mls/hr 09/07/17 17:52 09/07/17 18:38 Sodium Chloride 0.9% 1000 Ml IV 09/07/17 18:52 999 mls/hr .Q1H1M STA Administration Sodium Chloride Confirm 09/07/17 18:37 Sodium Chloride 0.9% 1000 Ml Administered 09/07/17 18:38 Dose 1,000 mls @ ud .ROUTE .[facility] ONE Sodium Chloride Confirm 09/07/17 19:46 Sodium Chloride 0.9% 1000 Ml Administered 09/07/17 19:47 Dose 1,000 mls @ ud .ROUTE .[facility] ONE Lab/Rad Data: Laboratory Result Diagrams 09/07/17 18:13 09/07/17 18:13 Laboratory Results 09/07/17 09/07/17 Range/Units 18:13 18:13 WBC 10.6 H (4.0-10.5) K/mm3 RBC 4.84 (4.1-5.4) M/mm3 Hgb 13.4 (12.0-16.0) gm/dl Hct 39.3 (35-47) % MCV 81.2 (78-100) fl MCH 27.7 (26-32) pg MCHC 34.1 (32-36) g/dl RDW 14.3 H (11.5-14.0) % Plt Count 351 (150-450) K/mm3 MPV 9.9 H (6-9.5) fl Gran % 69.1 H (36.0-66.0) % Eos # (Auto) 0.12 (0-0.5) Absolute Lymphs (auto) 2.28 (1.0-4.6) Absolute Monos (auto) 0.82 (0.0-1.3) Lymphocytes % 21.6 L (24.0-44.0) % Monocytes % 7.8 (0.0-12.0) % Eosinophils % 1.1 (0.00-5.0) % Basophils % 0.4 (0.0-0.4) % Absolute Granulocytes 7.31 H (1.4-6.9) Basophils # 0.04 (0-0.4) Sodium 137 (137-145) mmol/L Potassium 4.0 (3.5-5.1) mmol/L Chloride 97 L (98-107) mmol/L Carbon Dioxide 28 (22-30) mmol/L Anion Gap 16.3 H (5-15) MEQ/L BUN 9 (7-17) mg/dL Creatinine 0.59 (0.52-1.04) mg/dL Estimated GFR > 60.0 ML/MIN Glucose 349 H (74-106) mg/dL Calcium 9.6 (8.4-10.2) mg/dL Total Bilirubin 0.60 (0.2-1.3) mg/dL AST 35 (14-36) U/L ALT 32 (0-35) U/L Alkaline Phosphatase 105 (38-126) U/L Serum Total Protein 8.0 (6.3-8.2) g/dL Albumin 4.3 (3.5-5.0) g/dL Salicylates < 1.0 L (2-20) mg/dL Acetaminophen < 10 L (10-30) ug/ml Ethyl Alcohol < 10 (0-10) mg/dL - Progress Progress: improved Progress Note: 09/07/17 19:32 This is a 57-year-old white female with history of high blood pressure, diabetes type 2, degenerative disc disease, GERD, anxiety, depression, uterine bleeding, fibroids, back problems, paranoid schizophrenia Patient arrives with complaint that she wants to Patient is quite anxious she states that her boyfriend apparently will not let her take her psych medications also she states that he made her get rid of her dog She arrives crying and somewhat anxious she tells me that she took 3 100 mg amitriptyline tablets also had taken BuSpar last night unknown amount and then later said she took all of her meds apparently has been doubling up on her meds Patient is noted to have an elevated blood sugar on arrival of 349 she was tachycardic initial heart rate was 130 it is now 99 she is receiving her second liter of normal saline . Poison control had been contacted by the patient's nurse they question patient' s actual ingestion based on her symptoms however they recommended patient will need to be observed for at least 8 hours. I've contacted Dr. Zavala who is the patient's family physician Will plan on placing the patient on telemetry, will plan on repeating acetaminophen and salicylate level IV hours after last draw, Will write for Ativan 1 mg IV 3 times a day when necessary for anxiety. Will begin this once drug screen is available if drug screen is positive it is to be called to Dr. Zavala Patient to have repeat Accu-Chek after second liter of fluids are in and then will begin sliding scale insulin coverage. Patient will need psych consult. 09/07/17 19:58 patient much more calm, expressing than she deserves life in alf, heart rate 101 - Departure Time of Disposition: 19:39 Departure Disposition: Observation (telemetry) Clinical Impression: Anxiety, Intentional overdose of drug in tablet form, Hyperglycemia Depression Qualifiers: Depression Type: unspecified Qualified Code(s): F32.9 - Major depressive disorder, single episode, unspecified Condition: Fair Critical Care Time: No Referrals: LIZETT ZAVALA [Primary Care Provider] -
[2017-09-07 18:27] LABS: BASOPHIL % 0.4 % (0.0-0.4); Basophil (Absolute #) 0.04 (0-0.4); Eosinophil % 1.1 % (0.00-5.0); Eosinophil (Absolute #) 0.12 (0-0.5); Granulocyte Absolute (ANC) 7.31 (1.4-6.9); Granulocytes % 69.1 % (36.0-66.0); Hematocrit 39.3 % (35-47); Hemoglobin 13.4 gm/dl (12.0-16.0); Lymphocyte (Absolute #) 2.28 (1.0-4.6); Lymphocytes % 21.6 % (24.0-44.0); Mean Cell Volume 81.2 fl (78-100); Mean Corpuscular Hemoglobin 27.7 pg (26-32); Mean Corpuscular Hgb Concent. 34.1 g/dl (32-36); Mean Platelet Volume 9.9 fl (6-9.5); Monocyte (Absolute #) 0.82 (0.0-1.3); Monocytes % 7.8 % (0.0-12.0); Platelet Count 351 K/mm3 (150-450); Red Blood Count 4.84 M/mm3 (4.1-5.4); Red Cell Distribution Width 14.3 % (11.5-14.0); White Blood Count 10.6 K/mm3 (4.0-10.5)
[2017-09-07 18:33] LABS: ALBUMIN 4.3 g/dL (3.5-5.0); ALKALINE PHOSPHATASE 105 U/L (38-126); ANION GAP 16.3 MEQ/L (5-15); BLOOD UREA NITROGEN 9 mg/dL (7-17); CHLORIDE 97 mmol/L (98-107); Calcium 9.6 mg/dL (8.4-10.2); Carbon Dioxide 28 mmol/L (22-30); Creatinine 1 0.59 mg/dL (0.52-1.04); Glucose 349 mg/dL (74-106); SGOT/AST 35 U/L (14-36); SGPT/ALT 32 U/L (0-35); SODIUM 137 mmol/L (137-145)
[2017-09-07] MEDS ORDERED: Sodium Chloride 0.9% 1000 ML 1,000 ML ONE ×2 (18:37→19:46)
[2017-09-07 18:39] LABS: ACETAMINOPHEN < 10 ug/ml (10-30); SALICYLATE < 1.0 mg/dL (2-20)
[2017-09-07 18:40] LABS: ETHYL ALCOHOL < 10 mg/dL (0-10)
[2017-09-07 20:01] LABS: Amphetamine,Urine NEGATIVE (NEGATIVE); Barbiturate,Urine NEGATIVE (NEGATIVE); Benzodiazepine,Urine NEGATIVE (NEGATIVE); Cocaine,Urine NEGATIVE (NEGATIVE); Methadone,Urine NEGATIVE (NEGATIVE); Opiate,Urine NEGATIVE (NEGATIVE); PCP,Urine NEGATIVE (NEGATIVE); THC,Urine NEGATIVE (NEGATIVE)
[2017-09-07 20:06] LABS: Appearance CLOUDY (CLEAR); Bilirubin NEGATIVE (NEGATIVE); Blood 50 Ery/ul (0-5); Glucose 1000 mg/dL (NEGATIVE); Ketones MODERATE (NEGATIVE); Leukocyte Esterase 1+ (NEGATIVE); Nitrite NEGATIVE (NEGATIVE); Protein,Urine Dip 30 (Negative); Specific Gravity 1.015 (1.005-1.025); Urobilinogen NORMAL mg/dL (0-1)
[2017-09-07 20:07] LABS: Bacteria PACKED /HPF (NEGATIVE); Epithelial Cells MODERATE /HPF (FEW); WBC 15-25 /HPF (0-5)
[2017-09-07] MEDS ORDERED: Ativan 2 MG/1 ML VIAL IV PRN (21:18)
[2017-09-07] MEDS: Sodium Chloride 0.9% 1000 ML 1,000 ML IV SCH (21:34)
[2017-09-07] MEDS: NovoLOG Insulin SQ PRN (21:34)
[2017-09-08 00:05] LABS: ACETAMINOPHEN < 10 ug/ml (10-30); SALICYLATE < 1.0 mg/dL (2-20)
[2017-09-08 07:17] VITALS: O2SAT 95
[2017-09-08] MEDS: Sodium Chloride 0.9% 1000 ML 1,000 ML IV SCH (08:01)
[2017-09-08] MEDS: NovoLOG Insulin SQ PRN (08:17)
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
[2017-09-08] MEDS ORDERED: MEDICATION INTERVENTION MC SCH (09:30)
[2017-09-08] MEDS ORDERED: NovoLOG Insulin SQ SCH (10:00)
[2017-09-08] MEDS ORDERED: ECOTRIN 81 MG PO SCH (10:00)
[2017-09-08] MEDS ORDERED: NON-FORMULARY ITEM (Simvastatin 40 Mg [Zocor 40 Mg] 40 MG) PO SCH (10:00)
[2017-09-08] MEDS ORDERED: Zestril 5 MG PO SCH (10:00)
[2017-09-08] MEDS ORDERED: Pepcid 20 MG PO SCH (10:00)
[2017-09-08] MEDS ORDERED: Coreg 3.125 MG PO SCH (10:00)
[2017-09-08] MEDS ORDERED: hydroDIURIL 25 MG PO SCH (10:00)
[2017-09-08] MEDS ORDERED: INSULIN LISPRO 16 UNIT SQ SCH (10:00)
[2017-09-08] MEDS ORDERED: PLAVIX 75 MG Tablet PO SCH (10:00)
[2017-09-08] MEDS ORDERED: NON-FORMULARY ITEM (Lisinopril [Zestril] 2.5 MG) PO SCH (10:00)
[2017-09-08] MEDS ORDERED: NON-FORMULARY ITEM (Ranitidine Hcl [Zantac] 150 MG) PO SCH (10:00)
[2017-09-08] MEDS ORDERED: Haldol 5 MG IM ONE (10:57)
[2017-09-08] MEDS ORDERED: BENADRYL 25 MG CAPSULE PO ONE (12:00)
[2017-09-08 12:27] VITALS: BP 132/82; PULSE 99
[2017-09-08] MEDS ORDERED: Lantus Insulin SQ SCH (22:00)
[2017-09-08] MEDS ORDERED: ZOCOR 20MG PO SCH (22:00)
[2017-09-08] MEDS ORDERED: INSULIN GLARGINE HUM REC ANLOG 18 UNIT SQ SCH (22:00)
== END 2017-09-08 12:55 ==
LOC: ED 17:22 → MED SURG 20:22 → ICU 09-08 09:09 → MED SURG 09-08 09:09 → INTOOBSV 09-08 09:13 → OBSVTOIN 09-08 09:13
PROVIDERS: ADMIT Family Medicine; ATTEND Family Medicine
DX: F32.9 Major depressive disorder, single episode, unspecified (principal); R07.9 Chest pain, unspecified; T50.902A Poisoning by unspecified drugs, medicaments and biological substances, intentional self-harm, initial encounter; E11.42 Type 2 diabetes mellitus with diabetic polyneuropathy; Z79.4 Long term (current) use of insulin; F41.9 Anxiety disorder, unspecified; Z79.899 Other long term (current) drug therapy
CPT/HCPCS: 36000; 36415; 80053; 80307; 81000; 82962; 84484; 85025; 87077; 87086; 87186; 90791; 93005; 93041; 93268; 96360; 96361; 99285; G0481; J1630; Q3014; A9270-GY; G0378; G0480